=== PATIENT | male | born 1965 ===

== ENCOUNTER 2016-12-03 10:47 | Inpatient (IN) ==
[2016-12-03] MEDS ORDERED: NITROGLYCERIN 2% OINT 1 INCH/GM PACK TOP STA (11:13)
[2016-12-03] MEDS ORDERED: ONDANSETRON 4 MG/2 ML VIAL IV STA (11:13)
[2016-12-03] MEDS ORDERED: ASPIRIN 325 MG TABLET PO STA (11:13)
[2016-12-03] MEDS ORDERED: HEPARIN 5,000 UNIT/1 ML VIAL IV STA (11:18)
--- NOTE | 2016-12-03 11:20 | EKG Report ---
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
--- NOTE | 2016-12-03 11:25 | Emergency Department Note ---
Awilda Henry Hilary, am scribing for, and in the presence of, Frederic Vogel MD 11: 13. Lela Henry James D, MD, personally performed the services described in this documentation, ascribed by Tracy Kaiser in my presence, and it is both accurate and complete . Arrival - Arrival Chief Complaint: Chest Pain ED Nursing Triage Note: Brought in by EMS, transfer from [facility] ER for NSTEMI. C/o chest heaviness, but denies SOB. Also c/o lower back and left knee pain s/p fall earlier today, reports that he passed out while in the restroom r/t hypoglycemia. Mode of Arrival: Stretcher Limitations: No Limitations Source: Patient, RN Notes Reviewed - History of Present Illness HPI Narrative: Pt is a 51 y/o male brought to the ED via EMS as a transfer from [facility] ER for NSTEMI. Pt confirms chest heaviness, diaphoresis, ARORA and lower back pain with left knee pain s/p passing out from his hypoglycemia earlier today but denies SOB. He has a PMHx of CAD, HTN, CVA, Dyslipidemia, NIDDM and COPD. No other complaints or problems stated in the ED. Onset (ago): hour(s) Consistency: constant Severity: mild Severity scale (1-10): 1 Allergies/Adverse Reactions: Allergies Allergy/AdvReac Type Severity Reaction Status Date / Time No Known Allergies Allergy Verified 12/03/16 11:00 Home Medications: Home Medications Medication Instructions Recorded Confirmed Type Aspirin [Ecotrin] 81 mg PO DAILY 01/04/15 12/03/16 History Furosemide Tab [Lasix Tab] 40 mg PO TID 01/04/15 12/03/16 History hydrALAZINE TAB [Apresoline Tab] 50 mg PO TID 01/04/15 12/03/16 History Calcium (Carbonate) [Caltrate 600] 1,200 mg PO BID 12/03/16 12/03/16 History Gabapentin Cap/Tab [Neurontin 100 mg PO TID 12/03/16 12/03/16 History Cap/Tab] Ibuprofen Tab [Motrin Tab] 600 mg PO Q6H PRN 12/03/16 12/03/16 History Multivitamin (Centrum) [Centrum 1 tablet PO DAILY 09/07/17 09/07/17 History Tab] Saxagliptin HCl [Onglyza] 2.5 mg PO DAILY 12/03/16 12/03/16 History Simvastatin 10 mg PO DAILY 12/03/16 12/03/16 History amLODIPine [Norvasc] 5 mg PO DAILY 12/03/16 12/03/16 History glipiZIDE [Glipizide Xl] 10 mg PO DAILY 12/03/16 12/03/16 History Review of System - Review of System 12 point system: reviewed and no additional remarkable complaints except as stated - Review of System Constitutional: Present: diaphoresis. Absent: fever Respiratory: Absent: respiratory distress (SOB) Cardiovascular: Present: chest pain (Chest heaviness), syncope Musculoskeletal: Present: lower back pain Neurological: Present: headache Medical,Surgical,& Family Hx - Medical History Cardio: History of: CAD, Hypertension Neurology: History of: Cerebrovascular Accident Endocrine: History of: Diabetes Mellitus (NIDDM), Dyslipidemia Respiratory: History of: COPD - Surgical History Cardiac Surgeries: Sugical HX of: Cardiac Surgery Abdominal Surgeries: Surgical HX of: Abdominal Surgery (removal of foreign body at age 3) - Social History Smoking Status: Never smoker Frequency of Alcohol Use: None Type of Drug Use: None Exam Physical Examination: GENERAL: This is a well-nourished, well-developed male in no apparent distress. VITAL SIGNS: Temperature: 97.3 Pulse: 101 Respiratory: 16 Blood Pressure: 167/93 O2 Sat: 100 HEENT: Head is normocephalic and atraumatic. Pupils are equally round and reactive to light. Extraocular movement are intact. Oropharynx is benign with moist mucous membranes. NECK: Neck is soft and supple without tenderness. There are no masses. There is no lymphadenopathy. LUNGS: Lungs are clear to auscultation bilaterally. Chest rises symmetrically. There is no chest wall tenderness. CV: Heart is regular rate and rhythm without murmurs, rubs, or gallops. ABDOMEN: Abdomen is soft, non-tender to palpation. There are no abnormal masses palpated. There is no organomegaly. Bowel sounds are present and active. Back: Patient has minimal tenderness to palpation overlying the lumbar posterior spinous processes. SKIN: Skin is warm and dry. No rash. EXTREMITIES: There is some tenderness to palpation overlying the left patella. There is minimal reproducible pain with passive range of motion of the left knee. There is no pedal edema. NEUROLOGIC: Awake, alert, and oriented x4. Cranial nerves II through XII are grossly intact. There are no motorsensory deficits. PSYCHIATRIC: Normal affect. Normal mood. Vital Signs: Vital Signs Temperature 97.3 F L 12/03/16 10:54 Pulse Rate 101 H 12/03/16 10:54 Respiratory Rate 16 12/03/16 10:54 Blood Pressure 167/93 12/03/16 10:54 O2 Sat by Pulse Oximetry 100 12/03/16 10:54 Results - Labs Lab Results: I have reviewed the patients labs Labs: Lab performed at [facility] and reviewed by me: CBC: WBCs 8900, hemoglobin 9.1, hematocrit 28.7, platelet count 257,000 Urinalysis: Specific gravity 1.015, pH 5.0, nitrite negative, protein 2+ PTT 27.0 Urine drug screen negative INR 1.03 Chemistry: Sodium 142, potassium 4.2, chloride 105, CO2 18 Laboratory Tests 12/03/16 11:49 Troponin I 2.290 H .9, BUN 85, creatinine 6.5, troponin 2.9 Laboratory Tests 12/03/16 11:47 POC Glucose 61 L - EKG EKG results: interpreted by ERMD - Impressions EKG: Normal sinus rhythm with rate of 96, short OR interval, occasional PVCs, T- wave inversion inferiorly. - Diagnostic Findings Procedure: Chest x-ray: image reviewed by me (Old median sternotomy with no evidence of pleural effusions or infiltrates.), CT: image reviewed by me, report reviewed by me (CT head: No acute intracranial lesion or hemorrhage), X- ray: image reviewed by me (Lumbosacral spine x-ray: Multilevel DDD. left knee x- ray: No evidence of fracture.) Disposition Clinical Impression: Syncope, Coronary artery disease, Non-ST elevation [place] (NSTEMI), Diabetes mellitus, CKD (chronic kidney disease) Case discussed with: patient Disposition: Still a Patient
[2016-12-03] MEDS ORDERED: HEPARIN 5,000 UNIT/1 ML VIAL ONE (11:48)
[2016-12-03] MEDS ORDERED: NITROGLYCERIN 2% OINT 1 INCH/GM PACK TOP ONE (11:48)
[2016-12-03] MEDS ORDERED: ONDANSETRON 4 MG/2 ML VIAL ONE (11:48)
[2016-12-03] MEDS ORDERED: ASPIRIN 325 MG TABLET ONE (11:48)
[2016-12-03] MEDS ORDERED: DEXTROSE 50% 25 GM/50 ML SYRINGE IV ONE ×3 (11:50→15:12)
[2016-12-03] MEDS ORDERED: DEXTROSE 50% 25 GM/50 ML VIAL IV STA ×2 (12:02→13:31)
--- NOTE | 2016-12-03 12:13 | XRay Report ---
Exam: XR chest 2V Date: 12/03/2016 11:14 AM Indication: Chest pain Comparison: 01/04/2015 Technical: AP Findings: Sternotomy wires are present. Mild prominence the cortex silhouette. No obvious infiltrate or effusion. The bony structures are intact. The mediastinum reveals no acute findings with tiny nodes present. Impression: 1. Previous sternotomy 2. No acute cardiopulmonary pathology PROCEDURE INTERPRETED AT [facility] DEPARTMENT OF RADIOLOGY Final Report Signed by: Dr. Nolberto Crews
--- NOTE | 2016-12-03 12:14 | XRay Report ---
Exam: XR knee 2V LT Date: 12/03/2016 11:17 AM Indication: Pain secondary to fall Comparison: None Technical: AP lateral Findings: Minimal soft tissue swelling is present. The tibia fibula femur and patella are intact. Vascular calcification of the superficial femoral popliteal and tibial peroneal trunk arteries. Impression: 1. No fracture dislocation or significant arthritic changes 2. Mild soft tissue swelling 3. Extensive vascular calcification superficial femoral popliteal and tibial peroneal trunk vessels PROCEDURE INTERPRETED AT [facility] DEPARTMENT OF RADIOLOGY Final Report Signed by: Dr. Nolberto Crews
--- NOTE | 2016-12-03 12:16 | XRay Report ---
Exam: XR lumbar spine AP/LAT Date: 12/03/2016 11:17 AM Indication: Back pain secondary to fall Comparison: None Technical: AP lateral Findings: Examination reveals mild weightbearing deformity at T11 and T12. The lumbosacral spine is unremarkable. 5 lumbar vertebral segments are present. The pedicles and transverse processes are intact. The adjacent ribs of the lower thoracic spine area are intact the liver spleen and renal shadows are not well seen. Vascular calcifications are present. Impression: 1. Mild weightbearing deformity at T11 and T12 2. No obvious fractures lumbosacral spine 3. Vascular calcinosis PROCEDURE INTERPRETED AT [facility] DEPARTMENT OF RADIOLOGY Final Report Signed by: Dr. Nolberto Crews
--- NOTE | 2016-12-03 13:35 | Hospitalist History & Physical ---
Assessment and Plan - Time spent with patient Time spent with patient: Greater than 30 minutes (1) Non-ST elevation OR (NSTEMI) Status: Acute Assessment and plan: 12/03/16 Admit to Hospital Services Consult Cardiology (Patient of Dr Bender) Repeat troponin, serial repeat EKG repeat a.m. labs Echo Lipids A1c PRN pain management Sliding scale protocol for Glucose monitoring Discuss with Dr Oquendo for further recommendations with care. Current Visit: Yes (2) Syncope Status: Acute Current Visit: Yes (3) Chest pain Status: Acute Current Visit: No (4) CKD (chronic kidney disease) Status: Acute Assessment and plan: 12/03/16 Patient was scheduled to see Dr Galdamez today at [facility] for following up for Chronic renal insufficiency Patient is a patient of Dr Alexander Current Visit: Yes (5) Coronary artery disease Status: Acute Current Visit: Yes (6) Diabetes mellitus Status: Acute Current Visit: Yes History of Present Illness Chief complaint: chest pain and shortness of breath History of present illness: Mr. Vaz is a 51 year old [place] male w/PMHx CAD, CABG, Hypertension, CVA, DM , Dyslipidemia, COPD presented to the ED as transfer from [facility] ER for NSTEMI, chest heaviness and shortness of breath with exertion that started this a.m and went to [facility] ER for further evaluation. He reports being in the bathroom at [facility] when he passed out for a couple of seconds and fell to the floor related to hypoglycemia. He denies fever, chills, or cough. AT [facility] ER: LABS significant for Troponin 2.9, Creatinine 6.5 , BUN 85, GLUCOSE 28 Boris ED: CXR: nothing acute. Knee XR: no fracture dislocation, mild tissue swelling, extensive vascular calcification superficial femoral popliteal and tibial peroneal trunk vessels. Lumbar Spine XR: mild weight bearing deformity at T11 & T12, no fractures. Significant LABS: Glucose 61, Troponin 2.290. Hospital Services consulted for further evaluation and admission. He reports quitting smoking 2009, he denies alcohol intake, denies illicit drug use. PCP: Dr Bañuelos ([facility]) Renal: Dr Alexander and Dr Galdamez Barber Shop Operator: Dr Bender After discussion with Dr Vogel in ED and Dr Oquendo with Hospital Services, it was agreed to admit patient for further evaluation. Home medications to be reviewed and reconciliation to follow. Home Medications Medication Instructions Recorded Confirmed Type Aspirin [Ecotrin] 81 mg PO DAILY 01/04/15 12/03/16 History Furosemide Tab [Lasix Tab] 40 mg PO TID 01/04/15 12/03/16 History hydrALAZINE TAB [Apresoline Tab] 50 mg PO TID 01/04/15 12/03/16 History Calcium (Carbonate) [Caltrate 600] 1,200 mg PO BID 12/03/16 12/03/16 History Gabapentin Cap/Tab [Neurontin 100 mg PO TID 12/03/16 12/03/16 History Cap/Tab] Ibuprofen Tab [Motrin Tab] 600 mg PO Q6H PRN 12/03/16 12/03/16 History Multivitamin (Centrum) [Centrum 1 tablet PO DAILY 12/03/16 12/03/16 History Tab] Saxagliptin HCl [Onglyza] 2.5 mg PO DAILY 12/03/16 12/03/16 History Simvastatin 10 mg PO DAILY 12/03/16 12/03/16 History amLODIPine [Norvasc] 5 mg PO DAILY 12/03/16 12/03/16 History glipiZIDE [Glipizide Xl] 10 mg PO DAILY 12/03/16 12/03/16 History Allergies Allergy/AdvReac Type Severity Reaction Status Date / Time No Known Allergies Allergy Verified 12/03/16 11:00 Medical,Surgical,& Family Hx - Medical History Cardio: History of: CAD, Hypertension Neurology: History of: Cerebrovascular Accident Endocrine: History of: Diabetes Mellitus (NIDDM), Dyslipidemia Respiratory: History of: COPD - Surgical History Cardiac Surgeries: Sugical HX of: Cardiac Surgery (CABG 2009) Abdominal Surgeries: Surgical HX of: Abdominal Surgery (removal of foreign body at age 3) - Social History Smoking Status: Former smoker (quit 2009) Frequency of Alcohol Use: None Type of Drug Use: None Marital Status: Single Lives With:: Alone Functional capacity: uses cane/walker (cane) 12 point system: reviewed and no additional remarkable complaints except as stated - Constitutional Constitutional: Absent: anorexia, chills, fever(s), frequent falls - Cardiovascular Cardiovascular: Present: chest pain at rest, chest pain with activity, dyspnea on exertion, lightheadedness. 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 Absent: thyromegaly - Respiratory Respiratory exam: Present: clear to auscultation bilaterally. Absent: rhonchi, stridor, wheezes - Cardiovascular Cardiovascular exam: Present: regular rate and rhythm - GI/Abdominal GI/Abdominal exam: Present: normal bowel sounds, tenderness (generalized abdominal tenderness for a couple of days), soft - Extremities Exam Extremities exam: Present: full ROM. Absent: edema - Neurological Exam Neurological exam: Present: alert, oriented X3, CN II-XII intact - Psychiatric Psychiatric exam: Present: normal affect, normal mood. Absent: agitated, anxious - Skin Skin exam: Present: normal color, warm, dry Results - Labs Lab Results: I have reviewed the past 24 hour labs Labs: [facility]: LABS SIGNIFICANT: Troponin 2.290 and Glucose 61 [facility] sent records over and they are scanned into the system Significant LABS: Hypoglycemia, elevated troponin - Diagnostic Findings Procedure: Abdominal x-ray: other (LUMBAR SPINE XRAY: mild weight bearing deformity T11&T12, no fractures, vascular calcinosis), Chest x-ray: report reviewed by me (nothing acute), X-ray: report reviewed by me (knee: no fracture, mild soft tissue swelling)
[2016-12-03] MEDS ORDERED: MORPHINE 2 MG/1 ML SYRINGE IV PRN (13:36)
[2016-12-03] MEDS ORDERED: ACETAMINOPHEN 325 MG TABLET PO PRN (13:36)
[2016-12-03] MEDS ORDERED: SODIUM CHLORIDE 0.9% 1,000 ML IV SCH (14:00)
[2016-12-03] MEDS ORDERED: GLUCAGON 1 MG VIAL IM PRN (14:07)
[2016-12-03] MEDS ORDERED: DEXTROSE 50% 25 GM/50 ML VIAL IV PRN (14:07)
--- NOTE | 2016-12-03 14:53 | Nephrology Consult Note ---
History of Present Illness Chief complaint: Chronic kidney disease History of present illness: Mr. Vaz is a 51 year old male patient with history of chronic kidney disease due to hypertension diabetes is followed by me my chronic kidney disease clinic at [facility]. Patient was scheduled to see me today however presented to local emergency room with hypoglycemic episode and was found to have elevated troponin. Patient serum glucose was noted to be 28 serum creatinine has been 6.5. Home Medications Medication Instructions Recorded Confirmed Type Aspirin [Ecotrin] 81 mg PO DAILY 01/04/15 12/03/16 History Furosemide Tab [Lasix Tab] 40 mg PO TID 01/04/15 12/03/16 History hydrALAZINE TAB [Apresoline Tab] 50 mg PO TID 01/04/15 12/03/16 History Calcium (Carbonate) [Caltrate 600] 1,200 mg PO BID 12/03/16 12/03/16 History Gabapentin Cap/Tab [Neurontin 100 mg PO TID 12/03/16 12/03/16 History Cap/Tab] Ibuprofen Tab [Motrin Tab] 600 mg PO Q6H PRN 12/03/16 12/03/16 History Multivitamin (Centrum) [Centrum 1 tablet PO DAILY 12/03/16 12/03/16 History Tab] Saxagliptin HCl [Onglyza] 2.5 mg PO DAILY 12/03/16 12/03/16 History Simvastatin 10 mg PO DAILY 12/03/16 12/03/16 History amLODIPine [Norvasc] 5 mg PO DAILY 12/03/16 12/03/16 History glipiZIDE [Glipizide Xl] 10 mg PO DAILY 12/03/16 12/03/16 History Allergies Allergy/AdvReac Type Severity Reaction Status Date / Time No Known Allergies Allergy Verified 12/03/16 11:00 Medical,Surgical,& Family Hx - Medical History Cardio: History of: CAD, Hypertension, [place] Neurology: History of: Cerebrovascular Accident Endocrine: History of: Diabetes Mellitus (NIDDM), Dyslipidemia Respiratory: History of: COPD - Surgical History Cardiac Surgeries: Sugical HX of: Cardiac Surgery (CABG 2009) Abdominal Surgeries: Surgical HX of: Abdominal Surgery (removal of foreign body at age 3) - Social History Smoking Status: Former smoker Frequency of Alcohol Use: None Type of Drug Use: None Review of Systems Constitutional: fatigue, no fever(s) Cardiovascular: chest pain at rest Respiratory: dyspnea, no cough Gastrointestinal: no abdominal pain Genitourinary: no difficulty urinating Exam - Vital Signs Vital signs: Period Temp Pulse Resp BP Sys/Ford Pulse Ox Last 24 Hr 97.3 F-99.1 F 91-101 16-19 110-167/67-96 96-100 - General Appearance General appearance: well-developed, well-nourished EENT: ATNC Neck: supple Respiratory: clear Cardiology: regular rate, regular rhythm Gastrointestinal: normoactive bowel sounds, no tenderness Neurologic: alert and oriented x3, CN 3-12 intact Musculoskeletal: no clubbing Assessment and Plan (1) Hypoglycemia Status: Acute Current Visit: Yes (2) Renal insufficiency Status: Chronic Assessment and plan: BMP in a.m. Avoid nephrotoxic agents. Avoid NSAIDs. Will follow with you. Current Visit: No (3) Diabetes mellitus type 2, uncontrolled Status: Chronic Current Visit: No (4) Non-ST elevation [place] (NSTEMI) Status: Acute Assessment and plan: Elevated serum creatinine. Serial cardiac enzymes. Current Visit: Yes (5) CKD (chronic kidney disease) Status: Chronic Current Visit: Yes Qualifiers: Chronic kidney disease stage: stage 5, not on chronic dialysis Qualified Code(s): N18.5 - Chronic kidney disease, stage 5
--- NOTE | 2016-12-03 15:12 | EKG Report ---
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
[2016-12-03] MEDS: DEXTROSE 5% NACL 0.9% 1,000 ML IV SCH (15:31)
--- NOTE | 2016-12-03 16:21 | Cardiology Consult Note ---
<Meghann Lynn E - Last Filed: 12/03/16 16:16> Assessment and Plan - Time spent with patient Time spent with patient: Greater than 30 minutes (due to assessment, plan, and documentation) (1) Elevated troponin Status: Acute Assessment and plan: See plan of care listed below. Current Visit: Yes (2) Syncope Status: Acute Assessment and plan: See plan of care listed below. Current Visit: Yes (3) CKD (chronic kidney disease) Status: Chronic Assessment and plan: See plan of care listed below. Current Visit: Yes Qualifiers: Chronic kidney disease stage: stage 5, not on chronic dialysis Qualified Code(s): N18.5 - Chronic kidney disease, stage 5 (4) Coronary artery disease Status: Chronic Assessment and plan: See plan of care listed below. Current Visit: Yes (5) Hypertension Status: Chronic Assessment and plan: See plan of care listed below. Current Visit: No (6) Diabetes mellitus Status: Chronic Assessment and plan: See plan of care listed below. Current Visit: Yes Qualifiers: Diabetes mellitus type: type 2 (7) Tobacco abuse Status: Chronic Assessment and plan: See plan of care listed below. Current Visit: Yes (8) Hx of past noncompliance Status: Chronic Assessment and plan: See plan of care listed below. Current Visit: Yes History of Present Illness - Data of Consult Patient: new to practice (seen in remote past by Dr. Bender) Consult date: 12/03/16 Requesting Physician: Janett Kim - Consult Narrative Reason for consult: elevated troponin History of present illness: Polysomnograph Tech: Dr. Bender (last seen in 2013) PCP: Dr. Santana at [facility] Mr. Vaz is a 51 y/o NA male with a history of coronary artery disease, diabetes, hyperlipidemia, hypertension, chronic kidney disease, tobacco use. He underwent CABG involving two vessels on 11/08/[address] Milligan (DOWLING to LAD and SVG to right PDA). He returned in 2013 with chest pain and underwent nuclear stress testing which was consistent with an area of inferoapical scar without evidence of significant ischemia. EF 43% at that time. He also has a long history of noncompliance. Mr. Vaz was transferred to our facility from [facility] after experiencing a syncopal episode thought to be related to hypoglycemia. He was at [facility] for an appointment with Dr. Galdamez when he went to the bathroom and passed out for a few seconds. When he regained consciousness, he reports he had a midsternal chest heaviness, was diaphoretic, nauseated, and couldn't walk. He eventually made it to the door of the bathroom to call for help. His initial glucose level was 24. He tells me that he has hardly eaten anything since Wednesday because he does not have a job and couldn't afford it. He states he was too embarrassed to go to a friend's house to eat with them. He tells me that prior to today, he had been in his usual state of health. He denies recent exertional chest discomfort. When asked about dyspnea on exertion, he does admit to having some dyspnea on exertion over the past week but states he hadn't really thought about it until he was asked. Upon exam, he is having some mid back pain which he states is radiating around to his stomach. This is tender to palpation. Lumbar spine x-ray shows no obvious fractures in the lumbosacral spine. The x- ray revealed no fracture dislocation, mild tissue swelling. EKG shows sinus rhythm with inferior T-wave inversions. Troponin at [facility] 2.9 with CKMB 8.6 and CPK 605. His creatinine was 6.5 with GFR 10, sodium 142, potassium 4.2, chloride 105, CO2 18.9. H&H was 9.1 and 28.7. WBC 8.9, platelet count 257. Urine drug screen was negative. Blood pressure was 139/72 with heart rate 105. He was given 300 mg of Plavix p.o. and [address] head showed chronic age-related changes but no evidence of acute intracranial pathology. Will check lipid panel in AM. I have discussed Mr. Vaz with Dr. Tate and due to difficulty finding peripheral pulses and symptoms of claudication, we will obtain ABIs. Will await further recommendations from Dr. Tate. ASSESSMENT/PLAN: 1. ELEVATED TROPONIN: 2.9 at [facility] with elevated CK-MB in the setting of hypoglycemia, syncope, and chronic kidney disease. 2.34 at our facility. Echocardiogram has been ordered. We will continue to cycle cardiac biomarkers and EKGs and follow trend. 2. SYNCOPE: Thought to be due to hypoglycemia. Blood glucose level 24 upon initial check by [facility]. He has been given IV D50 and snacks with peanut butter and crackers. 3. CHRONIC KIDNEY DISEASE, STAGE V: Followed routinely by nephrology, Dr. Galdamez and Dr. Alexander. Not currently on dialysis. Will avoid nephrotoxic agents and monitor BMP. If possible, he may be best treated medically instead of pursuing LHC with IV dye to avoid worsening renal function. Certainly, if he has recurrent anginal symptoms, he may require further cardiac evaluation. 4. CORONARY ARTERY DISEASE: He underwent CABG involving two vessels on 11/08/[address] Milligan (DOWLING to LAD and SVG to right PDA). He returned in 2013 with chest pain and underwent nuclear stress testing which was consistent with an area of inferoapical scar without evidence of significant ischemia. EF 43% at that time. Continue aspirin 81mg po daily. Will start low dose beta zenon. Will avoid BRITTANI/ARB due to impaired kidney function. 5. HYPERTENSION: Fairly well controlled with occasional elevated readings since admission. Will continue home medications, monitor, and adjust accordingly. 6. DIABETES MELLITUS: Uncontrolled. He has been started on accuchecks. 7. TOBACCO ABUSE: Chronic. Greater than 5 minutes was spent discussing the benefits of tobacco cessation. 8. HISTORY OF NONCOMPLIANCE: Chronic. He has taken himself off of medications on numerous occasions. CC: Clark Oquendo MD - Home Medications and Allergies Home Medications: Home Medications Medication Instructions Recorded Confirmed Type Aspirin [Ecotrin] 81 mg PO DAILY 01/04/15 12/03/16 History Furosemide Tab [Lasix Tab] 40 mg PO TID 01/04/15 12/03/16 History hydrALAZINE TAB [Apresoline Tab] 50 mg PO TID 01/04/15 12/03/16 History Calcium (Carbonate) [Caltrate 600] 1,200 mg PO BID 12/03/16 12/03/16 History Gabapentin Cap/Tab [Neurontin 100 mg PO TID 12/03/16 12/03/16 History Cap/Tab] Ibuprofen Tab [Motrin Tab] 600 mg PO Q6H PRN 12/03/16 12/03/16 History Multivitamin (Centrum) [Centrum 1 tablet PO DAILY 12/03/16 12/03/16 History Tab] Saxagliptin HCl [Onglyza] 2.5 mg PO DAILY 12/03/16 12/03/16 History Simvastatin 10 mg PO DAILY 12/03/16 12/03/16 History amLODIPine [Norvasc] 5 mg PO DAILY 12/03/16 12/03/16 History glipiZIDE [Glipizide Xl] 10 mg PO DAILY 12/03/16 12/03/16 History Allergies/Adverse Reactions: Allergies Allergy/AdvReac Type Severity Reaction Status Date / Time No Known Allergies Allergy Verified 12/03/16 11:00 Review of systems: - Constitutional: Present: As per HPI. Absent: anorexia, chills, daytime sleepiness, excessive sweating, fever(s), frequent falls, headache(s), increased appetite, lethargy, malaise, night sweats, stops breathing during sleep, weakness, weight gain, weight loss, fatigue. - EENT Eyes: Present: As per HPI. Absent: blurry vision, diplopia, loss of vision Ears: Present: As per HPI. Absent: decreased hearing, ear discharge, ear pain Nose, mouth and throat: Present: As per HPI. Absent: dysphagia, epistaxis, headache(s), hoarseness, lip swelling, nasal congestion, neck mass, neck pain, sinus pressure, sore throat, throat swelling, tongue swelling, vertigo - Cardiovascular: Present: chest pain at rest, dyspnea on exertion, diaphoresis , claudication, as per HPI. Absent: chest pain with activity, dyspnea, edema, radiating jaw, neck or arm pain, lightheadedness, orthopnea, palpitations, PND - Respiratory: Present: dyspnea on exertion, as per HPI. Absent: dyspnea, cough , hemoptysis, wheezing, snoring, pain on inspiration - Gastrointestinal: Present: nausea, As per HPI. Absent: abdominal pain, bloating, change in bowel habits, constipation, diarrhea, heartburn, hematemesis , hematochezia, loose stools, melena, vomiting - Genitourinary: Present: As per HPI. Absent: difficulty urinating, dysuria, flank pain, hematuria, nocturia, urinary frequency, urinary incontinence - Musculoskeletal: Present: back pain, As per HPI. Absent: arthralgias, joint swelling, limited range of motion, muscle cramps, muscle weakness, myalgias - Neurological: Present: syncope, As per HPI. Absent: abnormal gait, abnormal speech, behavioral changes, confusion, convulsions, disequilibrium, dizziness, focal weakness, frequent falls, headache(s), memory loss, numbness, paresthesias , radicular pain, tremor(s) - Psychiatric: Present: As per HPI. Absent: anxiety, confusion, depression, panic attacks - Endocrine: Present: As per HPI. Absent: cold intolerance, fatigue, heat intolerance, polydipsia, polyphagia - Hematologic/Lymphatic: Present: As per HPI. Absent: easy bleeding, easy bruising, lymphadenopathy Medical,Surgical,& Family Hx - Medical History Cardio: History of: CAD, Hypertension, [place] Neurology: History of: Cerebrovascular Accident Endocrine: History of: Diabetes Mellitus (NIDDM), Dyslipidemia Respiratory: History of: COPD - Surgical History Cardiac Surgeries: Sugical HX of: Cardiac Surgery (CABG 2009) Abdominal Surgeries: Surgical HX of: Abdominal Surgery (removal of foreign body at age 3) - Social History Smoking Status: Former smoker Frequency of Alcohol Use: None Type of Drug Use: None Physical Examination Vital Signs Temp Pulse Resp BP Pulse Ox 97.3 F L 101 H 16 167/93 100 12/03/16 10:54 12/03/16 10:54 12/03/16 10:54 12/03/16 10:54 12/03/16 10:54 Exam: General appearance: Pleasant and cooperative. no acute distress. Head exam: Present: normal inspection, normocephalic, atraumatic. Absent: hematoma, laceration Eye exam: Present: EOMI. Absent: conjunctival injection, nystagmus, periorbital swelling, scleral icterus, laceration to eyelids, jaundice Pupils: Present: PERRL. Absent: constricted, dilated, fixed, irregular, unequal ENT exam: Present: normal exam, normal external ear exam, mucous membranes moist. Neck exam: Present: normal inspection, midline trachea. Absent: masses, lymphadenopathy, tenderness, thyromegaly, carotid bruit Respiratory exam: Present: clear to auscultation bilaterally. Absent: accessory muscle use, chest wall tenderness, rales, rhonchi, wheezing. Cardiovascular exam: Present: regular rate and rhythm. Absent: gallop, JVD, rubs, murmur GI/Abdominal exam: Present: normal bowel sounds, soft. Absent: distended, firm , hernia, mass, tenderness. Extremities exam: Present: Normal Gait, No Clubbing, No Cyanosis, Upper Extr. Pulses 2+, unable to palpate lower extremity pulses, Trace BLE edema. Capillary refill less than 3 seconds. Musculoskeletal: Present: No Fluid Collection, No Pain, Normal Range of Motion Back exam: Present: normal inspection. Absent: muscle spasm, vertebral tenderness Neurological exam: Present: awake, alert, oriented X3, Moves all extremities well without hemiparesis or paralysis. Grossly intact without resting or essential tremor Psychiatric exam: Present: quiet, somewhat of a flat affect Skin exam: Present: normal color, warm, dry, intact. Absent: cyanosis, diaphoretic, rash, urticaria Result/EKG - Labs Lab Results: I have reviewed the past 24 hour labs Labs: Laboratory Results - last 24 hr 12/03/16 12/03/16 12/03/16 11:47 11:49 13:25 POC Glucose 61 L 28 L* Troponin I 2.290 H 12/03/16 12/03/16 12/03/16 13:35 14:33 15:07 POC Glucose 218 H 40 L* Troponin I 2.340 H 12/03/16 16:13 POC Glucose 134 H Troponin I - EKG EKG results: interpreted by me, sinus rhythm (with inferior T-wave inversions) <Alvina Tate - Last Filed: 12/03/16 18:44> History of Present Illness - Consult Narrative History of present illness: I have personally interviewed and evaluated the patient, reviewed the chart and discussed medical decision-making with practitioner Shane. I have read this note and agree with her documentation here in. The care of this patient will be confounded by his history of noncompliance. He does tell me he has been recently compliant with his medications. We will continue to follow with you. His profound renal insufficiency also complicates the possibility of proceeding with cardiac catheterization. It is possible that his non-STEMI is secondary to the stress of his profound hypoglycemia which also included cerebral effects. Depending on how he evolves we may need to consider noninvasive testing as a first option. CC: Clark Oquendo MD Physical Examination Vital Signs Temp Pulse Resp BP Pulse Ox 97.3 F L 101 H 16 167/93 100 12/03/16 10:54 12/03/16 10:54 12/03/16 10:54 12/03/16 10:54 12/03/16 10:54 Result/EKG - Labs Labs: Laboratory Results - last 24 hr 12/03/16 12/03/16 12/03/16 11:47 11:49 13:25 POC Glucose 61 L 28 L* Total Creatine Kinase CK-MB (CK-2) CK and CKMB Interp Troponin I 2.290 H 12/03/16 12/03/16 12/03/16 13:35 14:33 15:07 POC Glucose 218 H 40 L* Total Creatine Kinase CK-MB (CK-2) CK and CKMB Interp Troponin I 2.340 H 12/03/16 12/03/16 16:13 17:31 POC Glucose 134 H Total Creatine Kinase 701 H CK-MB (CK-2) 8.8 H CK and CKMB Interp 1.3 Troponin I 2.600 H
[2016-12-03 18:16] LABS: CKMB % 1.3 %
[2016-12-03 18:18] LABS: Troponin I Only 2.6 NG/ML (0.00-0.045)
[2016-12-03] MEDS: CARVEDILOL 3.125 MG TABLET PO SCH (20:55)
[2016-12-03] MEDS: GABAPENTIN 100 MG CAPSULE PO SCH (20:55)
[2016-12-03] MEDS: CALCIUM (CARBONATE) 600 MG TABLET PO SCH (20:55)
[2016-12-04 00:30] LABS: CKMB % 1.1 %
[2016-12-04] MEDS: DEXTROSE 50% 25 GM/50 ML SYRINGE IV PRN ×4 (00:31→11:30)
[2016-12-04 00:47] LABS: Troponin I Only 2.97 NG/ML (0.00-0.045)
[2016-12-04] MEDS: DEXTROSE 5% NACL 0.9% 1,000 ML IV SCH (04:52)
[2016-12-04 05:52] LABS: Basophils % 0.6 % (0.0-0.8); Eosinophils # 0.1 10*3/uL (0.0-0.87); Eosinophils % 1.6 % (0.00-10.9); Hematocrit 21.8 VOL% (42.0-52.0); Immature Granulocytes % 0.7 %; Immature Granulocytes Absolute 0.05 #; Lymphocytes % 15.6 % (21.2-54.2); Mean Corpuscular HGB Conc 33.5 GM/DL (32-36); Mean Corpuscular Hemoglobin 30 PG (27-34); Mean Corpuscular Volume 89.3 FL (87-102); Mean Platelet Volume 10.1 FL (9.6-12.0); Monocytes # 0.7 10*3/uL (0.11-0.8); Monocytes % 9.7 % (1.7-12.7); Neutrophils # 4.8 10*3/uL (1.4-7.4); Neutrophils % 71.8 % (38.7-73.9); Platelet Count 204 T/CUMM (130-400); Red Blood Count 2.44 MC/CUMM (3.8-5.5); Red Cell Distribution Width 13.5 % (9.3-17.3); White Blood Count 6.7 T/CUMM (4-12)
[2016-12-04 05:54] LABS: Hemoglobin 7.3 GM/DL (14.0-18.0)
[2016-12-04 06:16] LABS: Albumin 2.6 G/DL (3.4-5.0); Bilirubin,Total 0.7 MG/DL (0.2-1.0); Magnesium 1.8 MG/DL (1.8-2.4); Osmolality,Calculated 312.7 MOS/KG (273-304); Potassium 4.3 MMOL/L (3.5-5.1); Risk Ratio 1.98; Total Protein 5.3 G/DL (6.4-8.3); VLDL CHOLESTEROL 12.2 MG/DL
[2016-12-04 06:19] LABS: Calcium 5.7 MG/DL (8.5-10.1)
[2016-12-04 08:59] LABS: Hepatitis A Ab IgM Quant 0.04 Index; Hepatitis A Ab IgM Result Negative (Negative); Hepatitis B Core IgM Quant 0.11 Index; Hepatitis B Core IgM Result Negative (Negative); Hepatitis B Surface Ag Quant 0.19 Index; Hepatitis B Surface Ag Result Negative (Negative); Hepatitis C Virus Ab Quant 0.03 Index; Hepatitis C Virus Ab Result Negative (Negative)
--- NOTE | 2016-12-04 09:19 | EKG Report ---
Stationary ECG Study [facility] Test Date: 12/03/2016 5:42:15 PM Pat Name: ARLINE SALCEDO Department: Room: 264 Gender: M [employer]: : [id number] Requested by: Clark Oquendo Order Number: [id number] Reading MD: MICA VALDIVIA Intervals [place] Rate: 91 P: 49 MN: 143 QRS: -8 QRSD: 93 T: 81 QT: 383 QTc: 432 Interpretive Statements SINUS RHYTHM POSSIBLE LEFT ATRIAL ENLARGEMENT Electronically Signed On 12-04-16 10:18:58 CDT by MICA VALDIVIA [email or web address]
--- NOTE | 2016-12-04 09:31 | ECHO Report ---
Miguelangel Vaz Exam Date: 12/03/2016 15:32 Referring Physician: Technologist: Zaira Linn RDCS Age: 51 Ht (in): 66 Wt (lb): 164 Gender: M Exam Location: [facility] Echo Indications: Chest pain, unspecified, Shortness of breath, Non-ST elevation (NSTEMI) myocardial infarction, Syncope and collapse, CAD with previous CABG, COPD, Essential (primary) hypertension BP: 148 / 94 HR: 97 Rhythm: Sinus Technical Quality: Fair IMPRESSIONS Moderate reduced LV systolic function with ejection fraction estimated at 40-45%. Moderate left atrial enlargement. Mild right atrial enlargement. Mild mitral, pulmonic, aortic and tricuspid regurgitation. Pulmonary hypertension with pulmonary artery pressure estimated at 60 mmHg. MEASUREMENTS (Male / Female) Normal Values 2D ECHO LV Diastolic Diameter PLAX 5.3 cm 4.2 - 5.9 / 3.9 - 5.3 cm LV Systolic Diameter PLAX 4.6 cm LV Fractional Shortening PLAX 13.4 % IVS Diastolic Thickness 1.1 cm 0.6 - 1.0 / 0.6 - 0.9 cm LVPW Diastolic Thickness 1.1 cm 0.6 - 1.0 / 0.6 - 0.9 cm RV Internal Dim ED PLAX 2.8 cm Aortic Root Diameter 3.5 cm LA Systolic Diameter LX 5.2 cm 3.0 - 4.0 / 2.7 - 3.8 cm DOPPLER TR Peak Velocity 354.0 cm/s TR Peak Gradient 50.1 mmHg FINDINGS Left Ventricle Normal left ventricular cavity size. Mild left ventricular hypertrophy. Left ventricular ejection fraction is estimated at 45 %. Right Ventricle Mildly increased right ventricular size. Right Atrium The right atrium is mildly enlarged. Left Atrium The left atrium is mildly enlarged. Mitral Valve Morphologically normal mitral valve. Trace mitral valve regurgitation. Aortic Valve Trileaflet aortic valve. Trace to mild aortic valve regurgitation. . Tricuspid Valve Morphologically normal tricuspid valve. Mild tricuspid valve regurgitation. Tricuspid regurgitation velocities suggest a PAP of 60 mmHg. Pulmonic Valve Morphologically normal pulmonic valve. Trace pulmonary valve regurgitation. Pericardium Normal pericardium without effusion. Aorta Normal ascending aorta dimension. Alvina Tate MD (Electronically Signed) Final Date: 04 December 2016 09:30
--- NOTE | 2016-12-04 09:47 | Cardiology Progress Note ---
<Meghann Lynn E - Last Filed: 12/04/16 10:44> Assessment and Plan - Time spent with patient Time spent with patient: Less than 30 minutes (1) Non-ST elevation OR (NSTEMI) Status: Acute Assessment and plan: See plan of care listed below. Current Visit: Yes (2) Elevated troponin Status: Acute Assessment and plan: See plan of care listed below. Current Visit: Yes (3) Syncope Status: Acute Assessment and plan: See plan of care listed below. Current Visit: Yes (4) CKD (chronic kidney disease) Status: Chronic Assessment and plan: See plan of care listed below. Current Visit: Yes Qualifiers: Chronic kidney disease stage: stage 5, not on chronic dialysis Qualified Code(s): N18.5 - Chronic kidney disease, stage 5 (5) Coronary artery disease Status: Chronic Assessment and plan: See plan of care listed below. Current Visit: Yes (6) Hypertension Status: Chronic Assessment and plan: See plan of care listed below. Current Visit: No (7) Diabetes mellitus Status: Chronic Assessment and plan: See plan of care listed below. Current Visit: Yes Qualifiers: Diabetes mellitus type: type 2 (8) Tobacco abuse Status: Chronic Assessment and plan: See plan of care listed below. Current Visit: Yes (9) Hx of past noncompliance Status: Chronic Assessment and plan: See plan of care listed below. 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 Santana at [facility] SUMMARY: Mr. Vaz is a 51 y/o NA male who was transferred to our facility from [facility] after experiencing a syncopal episode thought to be related to hypoglycemia. When he regained consciousness, he had chest pain and was taken to the ER. Troponin at [facility] 2.9 with CKMB 8.6 and CPK 605. Initial glucose level was 24. EKG showed sinus rhythm with inferior T-wave inversions. 2016: Mr. Vaz seen on the telemetry unit this morning. There has been little change in his status overnight. His troponin continues to rise but he has had no further chest discomfort or significant dyspnea. His blood glucose level did drop during the night and he required more IV dextrose. He continues to complain of pain in his bilateral lower extremities and does have some mild pitting edema. He is for ABIs this morning. I am unable to palpate DP pulses but he does have some faint PT pulses bilaterally, intermittent. H&H is 7.3 and 21.8. He has had no obvious signs of blood loss. We will repeat his H&H to make sure this is accurate as this is a fairly significant drop since yesterday. I have conferred care with Janett Kim NP this morning. Dr. Tate to follow with further plan and addendum. IMPRESSION/PLAN: 1. NSTEMI: His profound renal insufficiency complicates the possibility of proceeding with cardiac catheterization. It is possible that his non-STEMI is secondary to the stress of his profound hypoglycemia which also included cerebral effects. Depending on how he evolves we may need to consider noninvasive testing as a first option. 2. ELEVATED TROPONIN: 3.41 this morning with CK-MB 6.9 and CPK 663. 3. SYNCOPE: Thought to be due to hypoglycemia. Blood glucose level 24 upon initial check by [facility]. BG dropped to 22 during the night. He is now on IVF with dextrose. 4. CHRONIC KIDNEY DISEASE, STAGE V: Followed routinely by nephrology, Dr. Galdamez and Dr. Alexander. Not currently on dialysis. Will avoid nephrotoxic agents and monitor BMP. If possible, he may be best treated medically instead of pursuing LHC with IV dye to avoid worsening renal function. Certainly, if he has recurrent anginal symptoms, he may require further cardiac evaluation. 5. CORONARY ARTERY DISEASE: He underwent CABG involving two vessels on 11/08/[address] Milligan (DOWLING to LAD and SVG to right PDA). He returned in 2013 with chest pain and underwent nuclear stress testing which was consistent with an area of inferoapical scar without evidence of significant ischemia. EF 43% at that time. Continue aspirin 81mg po daily. Will start low dose beta zenon. Will avoid BRITTANI/ARB due to impaired kidney function. 6. HYPERTENSION: Fairly well controlled with occasional elevated readings since admission. Will continue home medications, monitor, and adjust accordingly. 7. DIABETES MELLITUS: Uncontrolled. He has been started on accuchecks. 8. TOBACCO ABUSE: Chronic. Greater than 5 minutes was spent discussing the benefits of tobacco cessation. 9. HISTORY OF NONCOMPLIANCE: Chronic. He has taken himself off of medications on numerous occasions but reports he has been recently compliant with medical therapy. 10. ELEVATED ALP: Hepatitis panel negative. Will defer to hospital medicine for further evaluation. 11. HYPOCALCEMIA: Calcium level 5.7 this morning. He is on calcium carbonate 1200mg po BID. 12. ANEMIA: H&H abnormal at [facility] but has dropped significantly overnight. We will recheck to ensure this is accurate. Exam (Progress Note) - Constitutional Vitals: Period Temp Pulse Resp BP Sys/Ford Pulse Ox Last 24 Hr 97.3 F-99.1 F 88-101 16-19 110-167/65-96 93-100 Exam: General appearance: Pleasant and cooperative. no acute distress. Head exam: Present: normal inspection, normocephalic, atraumatic. Absent: hematoma, laceration Eye exam: Present: EOMI. Absent: conjunctival injection, nystagmus, periorbital swelling, scleral icterus, laceration to eyelids, jaundice Pupils: Present: PERRL. Absent: constricted, dilated, fixed, irregular, unequal ENT exam: Present: normal exam, normal external ear exam, mucous membranes moist. Neck exam: Present: normal inspection, midline trachea. Absent: masses, lymphadenopathy, tenderness, thyromegaly, carotid bruit Respiratory exam: Present: clear to auscultation bilaterally. Absent: accessory muscle use, chest wall tenderness, rales, rhonchi, wheezing. Cardiovascular exam: Present: regular rate and rhythm. Absent: gallop, JVD, rubs, murmur GI/Abdominal exam: Present: normal bowel sounds, soft. Absent: distended, firm , hernia, mass, tenderness. Extremities exam: Present: Normal Gait, No Clubbing, No Cyanosis, Upper Extr. Pulses 2+, Faint PT pulses palpable bilaterally, 1+ BLE edema. Capillary refill less than 3 seconds. Musculoskeletal: Present: No Fluid Collection, No Pain, Normal Range of Motion Back exam: Present: normal inspection. Absent: muscle spasm, vertebral tenderness Neurological exam: Present: awake, alert, oriented X3, Moves all extremities well without hemiparesis or paralysis. Grossly intact without resting or essential tremor Psychiatric exam: Present: quiet, somewhat of a flat affect Skin exam: Present: normal color, warm, dry, intact. Absent: cyanosis, diaphoretic, rash, urticaria Result/EKG - Labs CBC & BMP: 12/04/16 03:46 12/04/16 03:46 Lab Results: I have reviewed the past 24 hour labs Labs: Laboratory Results - last 24 hr 12/03/16 12/03/16 12/03/16 11:47 11:49 13:25 WBC RBC Hgb Hct MCV MCH MCHC RDW Plt Count MPV Neut % (Auto) Lymph % (Auto) [place] % (Auto) Eos % (Auto) Baso % (Auto) Neut # (Auto) Lymph # (Auto) [place] # (Auto) Eos # (Auto) Baso # (Auto) Immature Gran % Nucleated RBC % Immature Gran # Nucleated RBCs # Immature Plt Fraction Sodium Potassium Chloride Carbon Dioxide Anion Gap BUN Creatinine GFR Calculation BUN/Creatinine Ratio Glucose POC Glucose 61 L 28 L* Hemoglobin A1c Calculated Osmolality Calcium Magnesium Total Bilirubin AST ALT Alkaline Phosphatase Total Creatine Kinase CK-MB (CK-2) CK and CKMB Interp Troponin I 2.290 H B-Natriuretic Peptide Total Protein Albumin Globulin Albumin/Globulin Ratio Triglycerides Cholesterol LDL Cholesterol VLDL Cholesterol HDL Cholesterol Heart Disease Risk Ratio Hepatitis A IgM Ab Hep Bs Antigen Hep B Core IgM Ab Hepatitis C Antibody 12/03/16 12/03/16 12/03/16 13:35 14:33 15:07 WBC RBC Hgb Hct MCV MCH MCHC RDW Plt Count MPV Neut % (Auto) Lymph % (Auto) [place] % (Auto) Eos % (Auto) Baso % (Auto) Neut # (Auto) Lymph # (Auto) [place] # (Auto) Eos # (Auto) Baso # (Auto) Immature Gran % Nucleated RBC % Immature Gran # Nucleated RBCs # Immature Plt Fraction Sodium Potassium Chloride Carbon Dioxide Anion Gap BUN Creatinine GFR Calculation BUN/Creatinine Ratio Glucose POC Glucose 218 H 40 L* Hemoglobin A1c Calculated Osmolality Calcium Magnesium Total Bilirubin AST ALT Alkaline Phosphatase Total Creatine Kinase CK-MB (CK-2) CK and CKMB Interp Troponin I 2.340 H B-Natriuretic Peptide Total Protein Albumin Globulin Albumin/Globulin Ratio Triglycerides Cholesterol LDL Cholesterol VLDL Cholesterol HDL Cholesterol Heart Disease Risk Ratio Hepatitis A IgM Ab Hep Bs Antigen Hep B Core IgM Ab Hepatitis C Antibody 12/03/16 12/03/16 12/03/16 16:13 17:31 19:09 WBC RBC Hgb Hct MCV MCH MCHC RDW Plt Count MPV Neut % (Auto) Lymph % (Auto) [place] % (Auto) Eos % (Auto) Baso % (Auto) Neut # (Auto) Lymph # (Auto) [place] # (Auto) Eos # (Auto) Baso # (Auto) Immature Gran % Nucleated RBC % Immature Gran # Nucleated RBCs # Immature Plt Fraction Sodium Potassium Chloride Carbon Dioxide Anion Gap BUN Creatinine GFR Calculation BUN/Creatinine Ratio Glucose POC Glucose 134 H 61 L Hemoglobin A1c Calculated Osmolality Calcium Magnesium Total Bilirubin AST ALT Alkaline Phosphatase Total Creatine Kinase 701 H CK-MB (CK-2) 8.8 H CK and CKMB Interp 1.3 Troponin I 2.600 H B-Natriuretic Peptide Total Protein Albumin Globulin Albumin/Globulin Ratio Triglycerides Cholesterol LDL Cholesterol VLDL Cholesterol HDL Cholesterol Heart Disease Risk Ratio Hepatitis A IgM Ab Hep Bs Antigen Hep B Core IgM Ab Hepatitis C Antibody 12/03/16 12/04/16 12/04/16 23:53 00:19 01:03 WBC RBC Hgb Hct MCV MCH MCHC RDW Plt Count MPV Neut % (Auto) Lymph % (Auto) [place] % (Auto) Eos % (Auto) Baso % (Auto) Neut # (Auto) Lymph # (Auto) [place] # (Auto) Eos # (Auto) Baso # (Auto) Immature Gran % Nucleated RBC % Immature Gran # Nucleated RBCs # Immature Plt Fraction Sodium Potassium Chloride Carbon Dioxide Anion Gap BUN Creatinine GFR Calculation BUN/Creatinine Ratio Glucose POC Glucose 38 L* 102 Hemoglobin A1c Calculated Osmolality Calcium Magnesium Total Bilirubin AST ALT Alkaline Phosphatase Total Creatine Kinase 609 H CK-MB (CK-2) 6.5 H CK and CKMB Interp 1.1 Troponin I 2.970 H B-Natriuretic Peptide Total Protein Albumin Globulin Albumin/Globulin Ratio Triglycerides Cholesterol LDL Cholesterol VLDL Cholesterol HDL Cholesterol Heart Disease Risk Ratio Hepatitis A IgM Ab Hep Bs Antigen Hep B Core IgM Ab Hepatitis C Antibody 12/04/16 12/04/16 12/04/16 03:46 03:46 03:46 WBC 6.7 RBC 2.44 L Hgb 7.3 L Hct 21.8 L MCV 89.3 MCH 30 MCHC 33.5 RDW 13.5 Plt Count 204 MPV 10.1 Neut % (Auto) 71.8 Lymph % (Auto) 15.6 L [place] % (Auto) 9.7 Eos % (Auto) 1.6 Baso % (Auto) 0.6 Neut # (Auto) 4.8 Lymph # (Auto) 1.0 L [place] # (Auto) 0.7 Eos # (Auto) 0.1 Baso # (Auto) 0.0 Immature Gran % 0.7 Nucleated RBC % 0.0 Immature Gran # 0.05 Nucleated RBCs # 0.00 Immature Plt Fraction 0.0 Sodium 145 Potassium 4.3 Chloride 113 H Carbon Dioxide 21 Anion Gap 15.3 H BUN 93 H Creatinine 6.10 H GFR Calculation 10 BUN/Creatinine Ratio 15.00 Glucose 22 L* POC Glucose Hemoglobin A1c Calculated Osmolality 312.7 H Calcium 5.7 L* Magnesium 1.8 Total Bilirubin 0.70 AST 23 ALT 18 Alkaline Phosphatase 130 H Total Creatine Kinase CK-MB (CK-2) CK and CKMB Interp Troponin I B-Natriuretic Peptide 651 H Total Protein 5.3 L Albumin 2.6 L Globulin 2.7 Albumin/Globulin Ratio 0.9 L Triglycerides 61 Cholesterol 85 LDL Cholesterol 37.0 VLDL Cholesterol 12.2 HDL Cholesterol 43 Heart Disease Risk Ratio 1.98 Hepatitis A IgM Ab Hep Bs Antigen Hep B Core IgM Ab Hepatitis C Antibody 12/04/16 12/04/16 12/04/16 03:46 03:46 03:48 WBC RBC Hgb Hct MCV MCH MCHC RDW Plt Count MPV Neut % (Auto) Lymph % (Auto) [place] % (Auto) Eos % (Auto) Baso % (Auto) Neut # (Auto) Lymph # (Auto) [place] # (Auto) Eos # (Auto) Baso # (Auto) Immature Gran % Nucleated RBC % Immature Gran # Nucleated RBCs # Immature Plt Fraction Sodium Potassium Chloride Carbon Dioxide Anion Gap BUN Creatinine GFR Calculation BUN/Creatinine Ratio Glucose POC Glucose 22 L* Hemoglobin A1c 5.6 Calculated Osmolality Calcium Magnesium Total Bilirubin AST ALT Alkaline Phosphatase Total Creatine Kinase CK-MB (CK-2) CK and CKMB Interp Troponin I B-Natriuretic Peptide Total Protein Albumin Globulin Albumin/Globulin Ratio Triglycerides Cholesterol LDL Cholesterol VLDL Cholesterol HDL Cholesterol Heart Disease Risk Ratio Hepatitis A IgM Ab Negative Hep Bs Antigen Negative Hep B Core IgM Ab Negative Hepatitis C Antibody Negative 12/04/16 12/04/16 12/04/16 04:50 07:51 08:23 WBC RBC Hgb Hct MCV MCH MCHC RDW Plt Count MPV Neut % (Auto) Lymph % (Auto) [place] % (Auto) Eos % (Auto) Baso % (Auto) Neut # (Auto) Lymph # (Auto) [place] # (Auto) Eos # (Auto) Baso # (Auto) Immature Gran % Nucleated RBC % Immature Gran # Nucleated RBCs # Immature Plt Fraction Sodium Potassium Chloride Carbon Dioxide Anion Gap BUN Creatinine GFR Calculation BUN/Creatinine Ratio Glucose POC Glucose 86 54 L 125 H Hemoglobin A1c Calculated Osmolality Calcium Magnesium Total Bilirubin AST ALT Alkaline Phosphatase Total Creatine Kinase CK-MB (CK-2) CK and CKMB Interp Troponin I B-Natriuretic Peptide Total Protein Albumin Globulin Albumin/Globulin Ratio Triglycerides Cholesterol LDL Cholesterol VLDL Cholesterol HDL Cholesterol Heart Disease Risk Ratio Hepatitis A IgM Ab Hep Bs Antigen Hep B Core IgM Ab Hepatitis C Antibody - EKG EKG results: interpreted by me, sinus rhythm Specialty Discharge - Follow Up or Referrals <Alvina Tate - Last Filed: 12/04/16 17:00> Cardiology - PN: Subj Interval history: I have personally interviewed and evaluated the patient, reviewed the chart and discussed medical decision-making with practitioner Shane. I have read this note and agree with her documentation here in With the following exceptions and clarifications: Troponins are flat, persistent. Some of this could be correlated with his extreme hypoglycemia. He continues to have severe renal insufficiency, anemia. At some point he will need further cardiac workup, stress testing versus heart catheterization depending whether or not he begins dialysis. We will need to manage his blood sugars and delineate his anemia prior to cardiac workup Exam (Progress Note) - Constitutional Vitals: Period Temp Pulse Resp BP Sys/Ford Pulse Ox Last 24 Hr 97.4 F-99.3 F 87-95 16-20 142-163/65-104 93-99 Result/EKG - Labs CBC & BMP: 12/04/16 10:55 12/04/16 03:46 Labs: Laboratory Results - last 24 hr 12/03/16 12/03/16 12/03/16 17:31 19:09 23:53 WBC RBC Hgb Hct MCV MCH MCHC RDW Plt Count MPV Neut % (Auto) Lymph % (Auto) [place] % (Auto) Eos % (Auto) Baso % (Auto) Neut # (Auto) Lymph # (Auto) [place] # (Auto) Eos # (Auto) Baso # (Auto) Immature Gran % Nucleated RBC % Immature Gran # Nucleated RBCs # Immature Plt Fraction Sodium Potassium Chloride Carbon Dioxide Anion Gap BUN Creatinine GFR Calculation BUN/Creatinine Ratio Glucose POC Glucose 61 L Hemoglobin A1c Calculated Osmolality Calcium Magnesium Total Bilirubin AST ALT Alkaline Phosphatase Total Creatine Kinase 701 H 609 H CK-MB (CK-2) 8.8 H 6.5 H CK and CKMB Interp 1.3 1.1 Troponin I 2.600 H 2.970 H B-Natriuretic Peptide Total Protein Albumin Globulin Albumin/Globulin Ratio Triglycerides Cholesterol LDL Cholesterol VLDL Cholesterol HDL Cholesterol Heart Disease Risk Ratio Hepatitis A IgM Ab Hep Bs Antigen Hep B Core IgM Ab Hepatitis C Antibody 12/04/16 12/04/16 12/04/16 00:19 01:03 03:46 WBC 6.7 RBC 2.44 L Hgb 7.3 L Hct 21.8 L MCV 89.3 MCH 30 MCHC 33.5 RDW 13.5 Plt Count 204 MPV 10.1 Neut % (Auto) 71.8 Lymph % (Auto) 15.6 L [place] % (Auto) 9.7 Eos % (Auto) 1.6 Baso % (Auto) 0.6 Neut # (Auto) 4.8 Lymph # (Auto) 1.0 L [place] # (Auto) 0.7 Eos # (Auto) 0.1 Baso # (Auto) 0.0 Immature Gran % 0.7 Nucleated RBC % 0.0 Immature Gran # 0.05 Nucleated RBCs # 0.00 Immature Plt Fraction 0.0 Sodium Potassium Chloride Carbon Dioxide Anion Gap BUN Creatinine GFR Calculation BUN/Creatinine Ratio Glucose POC Glucose 38 L* 102 Hemoglobin A1c Calculated Osmolality Calcium Magnesium Total Bilirubin AST ALT Alkaline Phosphatase Total Creatine Kinase CK-MB (CK-2) CK and CKMB Interp Troponin I B-Natriuretic Peptide Total Protein Albumin Globulin Albumin/Globulin Ratio Triglycerides Cholesterol LDL Cholesterol VLDL Cholesterol HDL Cholesterol Heart Disease Risk Ratio Hepatitis A IgM Ab Hep Bs Antigen Hep B Core IgM Ab Hepatitis C Antibody 12/04/16 12/04/16 12/04/16 03:46 03:46 03:46 WBC RBC Hgb Hct MCV MCH MCHC RDW Plt Count MPV Neut % (Auto) Lymph % (Auto) [place] % (Auto) Eos % (Auto) Baso % (Auto) Neut # (Auto) Lymph # (Auto) [place] # (Auto) Eos # (Auto) Baso # (Auto) Immature Gran % Nucleated RBC % Immature Gran # Nucleated RBCs # Immature Plt Fraction Sodium 145 Potassium 4.3 Chloride 113 H Carbon Dioxide 21 Anion Gap 15.3 H BUN 93 H Creatinine 6.10 H GFR Calculation 10 BUN/Creatinine Ratio 15.00 Glucose 22 L* POC Glucose Hemoglobin A1c 5.6 Calculated Osmolality 312.7 H Calcium 5.7 L* Magnesium 1.8 Total Bilirubin 0.70 AST 23 ALT 18 Alkaline Phosphatase 130 H Total Creatine Kinase CK-MB (CK-2) CK and CKMB Interp Troponin I B-Natriuretic Peptide 651 H Total Protein 5.3 L Albumin 2.6 L Globulin 2.7 Albumin/Globulin Ratio 0.9 L Triglycerides 61 Cholesterol 85 LDL Cholesterol 37.0 VLDL Cholesterol 12.2 HDL Cholesterol 43 Heart Disease Risk Ratio 1.98 Hepatitis A IgM Ab Hep Bs Antigen Hep B Core IgM Ab Hepatitis C Antibody 12/04/16 12/04/16 12/04/16 03:46 03:48 04:50 WBC RBC Hgb Hct MCV MCH MCHC RDW Plt Count MPV Neut % (Auto) Lymph % (Auto) [place] % (Auto) Eos % (Auto) Baso % (Auto) Neut # (Auto) Lymph # (Auto) [place] # (Auto) Eos # (Auto) Baso # (Auto) Immature Gran % Nucleated RBC % Immature Gran # Nucleated RBCs # Immature Plt Fraction Sodium Potassium Chloride Carbon Dioxide Anion Gap BUN Creatinine GFR Calculation BUN/Creatinine Ratio Glucose POC Glucose 22 L* 86 Hemoglobin A1c Calculated Osmolality Calcium Magnesium Total Bilirubin AST ALT Alkaline Phosphatase Total Creatine Kinase CK-MB (CK-2) CK and CKMB Interp Troponin I B-Natriuretic Peptide Total Protein Albumin Globulin Albumin/Globulin Ratio Triglycerides Cholesterol LDL Cholesterol VLDL Cholesterol HDL Cholesterol Heart Disease Risk Ratio Hepatitis A IgM Ab Negative Hep Bs Antigen Negative Hep B Core IgM Ab Negative Hepatitis C Antibody Negative 12/04/16 12/04/16 12/04/16 07:51 08:23 09:02 WBC RBC Hgb Hct MCV MCH MCHC RDW Plt Count MPV Neut % (Auto) Lymph % (Auto) [place] % (Auto) Eos % (Auto) Baso % (Auto) Neut # (Auto) Lymph # (Auto) [place] # (Auto) Eos # (Auto) Baso # (Auto) Immature Gran % Nucleated RBC % Immature Gran # Nucleated RBCs # Immature Plt Fraction Sodium Potassium Chloride Carbon Dioxide Anion Gap BUN Creatinine GFR Calculation BUN/Creatinine Ratio Glucose POC Glucose 54 L 125 H Hemoglobin A1c Calculated Osmolality Calcium Magnesium Total Bilirubin AST ALT Alkaline Phosphatase Total Creatine Kinase 663 H CK-MB (CK-2) 6.9 H CK and CKMB Interp 1.0 Troponin I 3.410 H B-Natriuretic Peptide Total Protein Albumin Globulin Albumin/Globulin Ratio Triglycerides Cholesterol LDL Cholesterol VLDL Cholesterol HDL Cholesterol Heart Disease Risk Ratio Hepatitis A IgM Ab Hep Bs Antigen Hep B Core IgM Ab Hepatitis C Antibody 12/04/16 12/04/16 12/04/16 10:55 11:22 12:06 WBC RBC Hgb 8.1 L Hct 24.3 L MCV MCH MCHC RDW Plt Count MPV Neut % (Auto) Lymph % (Auto) [place] % (Auto) Eos % (Auto) Baso % (Auto) Neut # (Auto) Lymph # (Auto) [place] # (Auto) Eos # (Auto) Baso # (Auto) Immature Gran % Nucleated RBC % Immature Gran # Nucleated RBCs # Immature Plt Fraction Sodium Potassium Chloride Carbon Dioxide Anion Gap BUN Creatinine GFR Calculation BUN/Creatinine Ratio Glucose POC Glucose 57 L 136 H Hemoglobin A1c Calculated Osmolality Calcium Magnesium Total Bilirubin AST ALT Alkaline Phosphatase Total Creatine Kinase CK-MB (CK-2) CK and CKMB Interp Troponin I B-Natriuretic Peptide Total Protein Albumin Globulin Albumin/Globulin Ratio Triglycerides Cholesterol LDL Cholesterol VLDL Cholesterol HDL Cholesterol Heart Disease Risk Ratio Hepatitis A IgM Ab Hep Bs Antigen Hep B Core IgM Ab Hepatitis C Antibody 12/04/16 12/04/16 12/04/16 14:19 16:08 16:38 WBC RBC Hgb Hct MCV MCH MCHC RDW Plt Count MPV Neut % (Auto) Lymph % (Auto) [place] % (Auto) Eos % (Auto) Baso % (Auto) Neut # (Auto) Lymph # (Auto) [place] # (Auto) Eos # (Auto) Baso # (Auto) Immature Gran % Nucleated RBC % Immature Gran # Nucleated RBCs # Immature Plt Fraction Sodium Potassium Chloride Carbon Dioxide Anion Gap BUN Creatinine GFR Calculation BUN/Creatinine Ratio Glucose POC Glucose 225 H 178 H Hemoglobin A1c Calculated Osmolality Calcium Magnesium Total Bilirubin AST ALT Alkaline Phosphatase Total Creatine Kinase 615 H CK-MB (CK-2) 6.1 H CK and CKMB Interp 1.0 Troponin I 3.030 H B-Natriuretic Peptide Total Protein Albumin Globulin Albumin/Globulin Ratio Triglycerides Cholesterol LDL Cholesterol VLDL Cholesterol HDL Cholesterol Heart Disease Risk Ratio Hepatitis A IgM Ab Hep Bs Antigen Hep B Core IgM Ab Hepatitis C Antibody
--- NOTE | 2016-12-04 09:52 | EKG Report ---
Stationary ECG Study [facility] Test Date: 12/04/2016 9:50:03 AM Pat Name: ARLINE SALCEDO Department: Room: 264 Gender: M Sock Turner: : 1965 Requested by: Janett Kim Order Number: [id number] Reading MD: MICA VALDIVIA Intervals [place] Rate: 93 P: 64 IA: 142 QRS: 47 QRSD: 91 T: 62 QT: 373 QTc: 424 Interpretive Statements SINUS RHYTHM INTERPRETATION BASED ON A DEFAULT AGE OF 40 YEARS Electronically Signed On 12-04-16 10:26:02 CDT by MICA VALDIVIA [email or web address]
[2016-12-04 10:15] LABS: Troponin I Only 3.41 NG/ML (0.00-0.045)
[2016-12-04] MEDS: CALCIUM (CARBONATE) 600 MG TABLET PO SCH ×2 (10:35→20:42)
[2016-12-04] MEDS: DEXTROSE 10% 1,000 ML IV SCH (10:35)
[2016-12-04] MEDS: GABAPENTIN 100 MG CAPSULE PO SCH ×3 (10:36→20:42)
[2016-12-04] MEDS: ASPIRIN EC 81 MG TABLET PO SCH (10:37)
[2016-12-04] MEDS: CARVEDILOL 3.125 MG TABLET PO SCH ×2 (10:37→20:43)
[2016-12-04 11:04] LABS: Hematocrit 24.3 VOL% (42.0-52.0); Hemoglobin 8.1 GM/DL (14.0-18.0)
[2016-12-04] MEDS ORDERED: methylPREDNISolone SOD SUC 125 MG/2 ML VIAL IV ONE (13:04)
--- NOTE | 2016-12-04 13:34 | Hospitalist Progress Note ---
Assessment and Plan - Time spent with patient Time spent with patient: Less than 30 minutes (1) Non-ST elevation [place] (NSTEMI) Status: Acute Assessment and plan: 12/03/16 Admit to Hospital Services Consult Cardiology (Patient of Dr Bender) Repeat troponin, serial repeat EKG repeat a.m. labs Echo Lipids A1c PRN pain management Sliding scale protocol for Glucose monitoring Discuss with Dr Oquendo for further recommendations with care. 12/04/16 Cardiology is following and greatly appreciate their assistance with care (troponin up to 3.410) A1c 5.6 - continue to monitor blood glucose, continue to hold diabetic medications, and continue d10 IV fluids BNP 651 - patient is being followed by renal for chronic kidney disease without dialysis result: Lipids - checked and reviewed, no changes needed Result: Hepatitis - negative Result: Echo - EF 40-45% repeat a.m. labs Will discuss with Dr Oquendo for further recommendations of care Current Visit: Yes (2) Syncope Status: Acute Current Visit: Yes (3) Chest pain Status: Acute Current Visit: No (4) CKD (chronic kidney disease) Status: Chronic Assessment and plan: 12/04/16 Renal is following and greatly appreciate assistance with care, continue to follow recommendations with care. 12/03/16 Patient was scheduled to see Dr Galdamez today at [facility] for following up for Chronic renal insufficiency Patient is a patient of Dr Alexander Current Visit: Yes Qualifiers: Chronic kidney disease stage: stage 5, not on chronic dialysis Qualified Code(s): N18.5 - Chronic kidney disease, stage 5 (5) Coronary artery disease Status: Chronic Current Visit: Yes (6) Diabetes mellitus Status: Chronic Current Visit: Yes Qualifiers: Diabetes mellitus type: type 2 Hospitalist: Subjective Interval history: 12/04/16 Mr Vaz seen and chart reviewed. He was up to shower the first time I attempted to visit him, returned and examined after shower. He reports feeling less occurrence of tightness in chest but still having frequent dizziness, most likely related to continues to have episodes of hypoglycemia, this a.m. changed IV fluids to dextrose 10 and will continue to monitor blood glucose levels. A1c 5.6 this a.m. His H&H was repeated this a.m. 8.1 & 24.3, history of chronic renal disease. Troponin continues to rise 3.410 without chest pain or shortness of breath. Cardiology is following and conferred care with Meghann Lynn NP this morning. Exam - Constitutional Vitals: Period Temp Pulse Resp BP Sys/Ford Pulse Ox Last 24 Hr 97.4 F-99.1 F 88-96 18-20 120-159/65-96 93-100 General appearance: normal weight, no acute distress - Head Head exam: Present: normal inspection - Eye Eye exam: Present: EOMI Pupils: Present: DOT - Neck Neck exam: Present: normal inspection - Respiratory Respiratory exam: Present: clear to auscultation bilaterally. Absent: wheezes - Cardiovascular Cardiovascular exam: Present: regular rate and rhythm - GI/Abdominal GI/Abdominal exam: Present: normal bowel sounds, soft. Absent: rebound - Extremities Exam Extremities exam: Present: full ROM, edema (1+ bilateral lower extremities, tight and shiny skin with pulses palpable) - Neurological Exam Neurological exam: Present: alert, oriented X3 - Psychiatric Psychiatric exam: Present: normal affect, normal mood. Absent: agitated, anxious - Skin Skin exam: Present: normal color, warm, dry Results - Labs CBC & BMP: 12/04/16 10:55 12/04/16 03:46 Lab Results: I have reviewed the past 24 hour labs Specialty Discharge - Follow Up or Referrals
--- NOTE | 2016-12-04 13:50 | Nephrology Progress Note ---
Nephrology - PN: Subj Interval history: The patient is resting. Glucoses have been running low. He mentions that he still has some shortness of breath at time. Serum creatinine is noted be 6.1. Discussed with patient that he may have to start dialysis within this hospitalization. At present, he is resistant. No fevers or chills. Serum troponin is noted to be 2.9. Cardiology is following. Exam (PN)-Nephrology - Vital Signs Vital signs: Period Temp Pulse Resp BP Sys/Ford Pulse Ox Last 24 Hr 97.4 F-99.1 F 88-96 18-20 120-159/65-96 93-100 - General Appearance General appearance: well-developed, well-nourished EENT: ATNC Neck: supple Respiratory: clear Cardiology: no edema, regular rate, regular rhythm Gastrointestinal: normoactive bowel sounds Neurologic: alert and oriented x3 Musculoskeletal: no clubbing Psychiatric: mood/affect appropriate, cooperative - Lab 12/04/16 10:55 12/04/16 03:46 Most recent lab results Calcium 5.7 MG/DL (8.5-10.1) L* 12/04/16 03:46 Magnesium 1.8 MG/DL (1.8-2.4) 12/04/16 03:46 Assessment and Plan (1) Hypoglycemia Status: Acute Current Visit: Yes (2) Renal insufficiency Status: Chronic Assessment and plan: BMP in a.m. Avoid nephrotoxic agents. Avoid NSAIDs. Will follow with you. Current Visit: No (3) Diabetes mellitus type 2, uncontrolled Status: Chronic Current Visit: No (4) Non-ST elevation [place] (NSTEMI) Status: Acute Assessment and plan: Elevated serum creatinine. Serial cardiac enzymes. Current Visit: Yes (5) CKD (chronic kidney disease) Status: Chronic Assessment and plan: The patient is close to start dialysis. I discussed with him his dialysis options. At present he is resistant. However if further cardiovascular intervention is needed in regards to patient's elevated troponin, then dialysis will likely be needed. Current Visit: Yes Qualifiers: Chronic kidney disease stage: stage 5, not on chronic dialysis Qualified Code(s): N18.5 - Chronic kidney disease, stage 5 Specialty Discharge - Follow Up or Referrals
[2016-12-04 15:26] LABS: Troponin I Only 3.03 NG/ML (0.00-0.045)
[2016-12-05] MEDS ORDERED: GLUCAGON 1 MG VIAL IM PRN (00:28)
[2016-12-05] MEDS ORDERED: DEXTROSE 50% 25 GM/50 ML VIAL IV PRN (00:28)
[2016-12-05] MEDS ORDERED: ONDANSETRON 4 MG/2 ML VIAL IV PRN (00:32)
[2016-12-05] MEDS: INSULIN LISPRO 100 UNIT/ML SUBCUT SCH ×8 (00:41→21:22)
[2016-12-05] MEDS ORDERED: INSULIN REGULAR 100 UNIT/ML SUBCUT ONE (02:39)
[2016-12-05] MEDS: DEXTROSE 10% 1,000 ML IV SCH (04:39)
[2016-12-05 05:43] LABS: Calcium 6.6 MG/DL (8.5-10.1); Magnesium 1.9 MG/DL (1.8-2.4); Osmolality,Calculated 316.8 MOS/KG (273-304)
[2016-12-05] MEDS: DEXTROSE 50% 25 GM/50 ML SYRINGE IV PRN (07:09)
[2016-12-05] MEDS: GABAPENTIN 100 MG CAPSULE PO SCH ×3 (08:29→21:22)
[2016-12-05] MEDS: ASPIRIN EC 81 MG TABLET PO SCH (08:29)
[2016-12-05] MEDS: CALCIUM (CARBONATE) 600 MG TABLET PO SCH ×2 (08:29→21:22)
[2016-12-05] MEDS: CARVEDILOL 3.125 MG TABLET PO SCH ×2 (08:29→21:22)
--- NOTE | 2016-12-05 12:22 | Cardiology Progress Note ---
Assessment and Plan (1) Hypoglycemia Status: Acute Current Visit: Yes (2) Syncope Status: Acute Current Visit: Yes (3) Anemia Status: Acute Current Visit: Yes (4) Renal insufficiency Status: Chronic Current Visit: No (5) Diabetes mellitus type 2, uncontrolled Status: Chronic Current Visit: No (6) Hypertension Status: Chronic Current Visit: No (7) Coronary artery disease Status: Chronic Current Visit: Yes (8) Non-ST elevation [place] (NSTEMI) Status: Acute Current Visit: Yes (9) Hx of past noncompliance Status: Chronic Current Visit: Yes Cardiology - PN: Subj Interval history: Interval history: Vitamin Manager: Dr. Bender PCP: Dr. Santana at [facility] SUMMARY: Mr. Vaz is a 51 y/o NA male who was transferred to our facility from [facility] after experiencing a syncopal episode thought to be related to hypoglycemia. When he regained consciousness, he had chest pain and was taken to the ER. Troponin at [facility] 2.9 with CKMB 8.6 and CPK 605. Initial glucose level was 24. EKG showed sinus rhythm with inferior T-wave inversions. 2016: Evening was uneventful. He denies any chest pain or shortness of breath. His blood sugars are now elevated, he has been on a dextrose drip. IMPRESSION/PLAN: 1. NSTEMI: His advanced renal insufficiency complicates the possibility of proceeding with cardiac catheterization. It is possible that his non-STEMI is secondary to the stress of his profound hypoglycemia which also included cerebral effects. Depending on how he evolves we may need to consider noninvasive testing versus left heart catheterization depending whether or not he is initiated on hemodialysis. 2. SYNCOPE: Thought to be due to hypoglycemia. Blood glucose level 24 upon initial check by [facility]. 3. Hypoglycemia: This is being managed by hospitalist service. 4. CHRONIC KIDNEY DISEASE, STAGE V: Followed routinely by nephrology, Dr. Galdamez and Dr. Alexander. Not currently on dialysis. Will avoid nephrotoxic agents and monitor BMP. If possible, he may be best treated medically instead of pursuing LHC with IV dye to avoid worsening renal function. Certainly, if he has recurrent anginal symptoms, he may require further cardiac evaluation. 5. CORONARY ARTERY DISEASE: He underwent CABG involving two vessels on 11/08/[address] Milligan (DOWLING to LAD and SVG to right PDA). He returned in 2013 with chest pain and underwent nuclear stress testing which was consistent with an area of inferoapical scar without evidence of significant ischemia. EF 43% at that time. Continue aspirin 81mg po daily. Will start low dose beta zenon. Will avoid BRITTANI/ARB due to impaired kidney function. 6. HYPERTENSION: I will increase his beta-zenon. 7. DIABETES MELLITUS: This is being treated by hospitalist service. 8. TOBACCO ABUSE: Chronic. We have already discussed with the benefits of tobacco cessation. 9. HISTORY OF NONCOMPLIANCE: Chronic. He has taken himself off of medications on numerous occasions but reports he has been recently compliant with medical therapy. 10. ELEVATED ALP: Hepatitis panel negative. Will defer to hospital medicine for further evaluation. 11. HYPOCALCEMIA: Treated by the hospitalist service. 12. ANEMIA: H&H not drawn today, we will need to continue to follow this. Exam (Progress Note) - Constitutional Vitals: Period Temp Pulse Resp BP Sys/Ford Pulse Ox Last 24 Hr 97.4 F-99.3 F 85-97 16-20 145-163/80-104 94-99 Exam: General appearance: normal weight, no acute distress - Head Head exam: Present: normal inspection, normocephalic, atraumatic. Absent: hematoma, laceration - Eye Eye exam: Present: EOMI. Absent: conjunctival injection, nystagmus, periorbital swelling, scleral icterus, laceration to eyelids Pupils: Present: PERRL. Absent: constricted, dilated, fixed, irregular, unequal - ENT ENT exam: Present: normal exam, normal external ear exam - Neck Neck exam: Present: normal inspection. Absent: lymphadenopathy, meningismus, tenderness, thyromegaly - Respiratory Respiratory exam: Present: clear to auscultation bilaterally. Absent: accessory muscle use, chest wall tenderness - Cardiovascular Cardiovascular exam: Present: regular rate and rhythm. Absent: carotid bruit, gallop, JVD, rubs - GI/Abdominal GI/Abdominal exam: Present: normal bowel sounds, soft. Absent: distended, firm , guarding, hernia, mass, tenderness, rebound. - Extremities Exam Extremities exam: Present: Decreased pulses bilateral lower extremities. Absent : calf tenderness, edema - Back Exam Back exam: Present: normal inspection. Absent: muscle spasm, vertebral tenderness - Neurological Exam Neurological exam: Present: alert, oriented X3, grossly intact without resting or intention tremor - Psychiatric Psychiatric exam: Present: normal affect, normal mood - Skin Skin exam: Present: normal color, warm, dry, intact. Absent: cyanosis, diaphoretic, rash, urticaria Result/EKG - Labs CBC & BMP: 12/04/16 10:55 12/05/16 04:10 Lab Results: I have reviewed the past 24 hour labs Labs: Laboratory Results - last 24 hr 12/04/16 12/04/16 12/04/16 14:19 16:08 16:38 Sodium Potassium Chloride Carbon Dioxide Anion Gap BUN Creatinine GFR Calculation BUN/Creatinine Ratio Glucose POC Glucose 225 H 178 H Calculated Osmolality Calcium Magnesium Total Creatine Kinase 615 H CK-MB (CK-2) 6.1 H CK and CKMB Interp 1.0 Troponin I 3.030 H 12/04/16 12/04/16 12/04/16 19:52 19:54 20:54 Sodium Potassium Chloride Carbon Dioxide Anion Gap BUN Creatinine GFR Calculation BUN/Creatinine Ratio Glucose POC Glucose 430 H 389 H 453 H Calculated Osmolality Calcium Magnesium Total Creatine Kinase CK-MB (CK-2) CK and CKMB Interp Troponin I 12/04/16 12/04/16 12/05/16 23:39 23:42 02:34 Sodium Potassium Chloride Carbon Dioxide Anion Gap BUN Creatinine GFR Calculation BUN/Creatinine Ratio Glucose POC Glucose > 500 H* > 500 H* > 500 H* Calculated Osmolality Calcium Magnesium Total Creatine Kinase CK-MB (CK-2) CK and CKMB Interp Troponin I 12/05/16 12/05/16 12/05/16 04:10 04:20 07:00 Sodium 137 Potassium 5.0 Chloride 107 Carbon Dioxide 19 L Anion Gap 16.0 H BUN 101 H Creatinine 6.40 H GFR Calculation 10 BUN/Creatinine Ratio 15.00 Glucose 318 H POC Glucose 313 H < 20 L* Calculated Osmolality 316.8 H Calcium 6.6 L Magnesium 1.9 Total Creatine Kinase CK-MB (CK-2) CK and CKMB Interp Troponin I 12/05/16 12/05/16 12/05/16 07:02 07:05 07:23 Sodium Potassium Chloride Carbon Dioxide Anion Gap BUN Creatinine GFR Calculation BUN/Creatinine Ratio Glucose POC Glucose < 20 L* < 20 L* 122 H Calculated Osmolality Calcium Magnesium Total Creatine Kinase CK-MB (CK-2) CK and CKMB Interp Troponin I 12/05/16 12/05/16 12/05/16 07:50 08:56 09:55 Sodium Potassium Chloride Carbon Dioxide Anion Gap BUN Creatinine GFR Calculation BUN/Creatinine Ratio Glucose POC Glucose 96 103 154 H Calculated Osmolality Calcium Magnesium Total Creatine Kinase CK-MB (CK-2) CK and CKMB Interp Troponin I 12/05/16 12/05/16 10:49 12:06 Sodium Potassium Chloride Carbon Dioxide Anion Gap BUN Creatinine GFR Calculation BUN/Creatinine Ratio Glucose POC Glucose 174 H 201 H Calculated Osmolality Calcium Magnesium Total Creatine Kinase CK-MB (CK-2) CK and CKMB Interp Troponin I Specialty Discharge - Follow Up or Referrals
--- NOTE | 2016-12-05 14:25 | Hospitalist Progress Note ---
Assessment and Plan (1) Non-ST elevation [place] (NSTEMI) Status: Acute Assessment and plan: The patient's troponin is trending downward will recheck again in the morning. Blood glucose is better controlled after he was on dextrose infusion and no further hypoglycemic episodes have occurred. I am going to discontinue dextrose infusion and continue sliding scale determinations. I anticipate discharge home tomorrow. Current Visit: Yes (2) Diabetes mellitus Status: Chronic Current Visit: Yes Qualifiers: Diabetes mellitus type: type 2 (3) CKD (chronic kidney disease) Status: Chronic Current Visit: Yes Qualifiers: Chronic kidney disease stage: stage 5, not on chronic dialysis Qualified Code(s): N18.5 - Chronic kidney disease, stage 5 Hospitalist: Subjective Interval history: Mr. Vaz is ambulatory in the hallway. He has less foot pain today than he had yesterday. Has shortness of breath with exertion but no angina. Exam - Constitutional Vitals: Period Temp Pulse Resp BP Sys/Ford Pulse Ox Last 24 Hr 97.4 F-99.3 F 84-97 16-20 145-178/80-104 94-99 General appearance: no acute distress - Respiratory Respiratory exam: Present: clear to auscultation bilaterally - Cardiovascular Cardiovascular exam: Present: regular rate and rhythm Results - Labs CBC & BMP: 12/04/16 10:55 12/05/16 04:10 Lab Results: I have reviewed the past 24 hour labs Specialty Discharge - Follow Up or Referrals
[2016-12-05 16:26] LABS: Osmolality,Calculated 307.1 MOS/KG (273-304); Potassium 5.6 MMOL/L (3.5-5.1)
--- NOTE | 2016-12-05 16:37 | Nephrology Progress Note ---
Nephrology - PN: Subj Interval history: The patient is resting. Glucoses have been running low. He mentions that he still has some shortness of breath at time. Serum creatinine is noted be 6.1. Discussed with patient that he may have to start dialysis within this hospitalization. At present, he is resistant. No fevers or chills. Serum troponin is noted to be 2.9. Cardiology is following. 12/05/2016. The patient is up and relate in his room. Denies any shortness of breath. Serum creatinine is 5.9 which is trending downward. Glucoses have improved now at 210. Exam (PN)-Nephrology - Vital Signs Vital signs: Period Temp Pulse Resp BP Sys/Ford Pulse Ox Last 24 Hr 97.4 F-99.2 F 84-97 16-20 145-178/80-94 94-98 - General Appearance General appearance: well-developed, well-nourished EENT: ATNC Neck: supple Respiratory: clear Cardiology: regular rate, regular rhythm Gastrointestinal: normoactive bowel sounds Integumentary: no rash Neurologic: alert and oriented x3, CN 3-12 intact Musculoskeletal: no deformities, no clubbing Psychiatric: mood/affect appropriate - Lab 12/04/16 10:55 12/05/16 15:54 Most recent lab results Calcium 7.0 MG/DL (8.5-10.1) L 12/05/16 15:54 Magnesium 1.9 MG/DL (1.8-2.4) 12/05/16 04:10 Assessment and Plan (1) Hypoglycemia Status: Acute Current Visit: Yes (2) Renal insufficiency Status: Chronic Assessment and plan: BMP in a.m. Avoid nephrotoxic agents. Avoid NSAIDs. Current Visit: No (3) Diabetes mellitus type 2, uncontrolled Status: Chronic Current Visit: No (4) Non-ST elevation [place] (NSTEMI) Status: Acute Assessment and plan: Elevated serum creatinine. Serial cardiac enzymes. Current Visit: Yes (5) CKD (chronic kidney disease) Status: Chronic Assessment and plan: The patient is to protect left arm from blood draws and blood pressure measurements. Continue to discuss with patient about renal replacement therapy options. Current Visit: Yes Qualifiers: Chronic kidney disease stage: stage 5, not on chronic dialysis Qualified Code(s): N18.5 - Chronic kidney disease, stage 5 Specialty Discharge - Follow Up or Referrals
[2016-12-06 05:14] LABS: Magnesium 2.1 MG/DL (1.8-2.4); Osmolality,Calculated 314.4 MOS/KG (273-304); Potassium 5.8 MMOL/L (3.5-5.1)
[2016-12-06] MEDS: INSULIN LISPRO 100 UNIT/ML SUBCUT SCH ×4 (07:53→21:16)
[2016-12-06] MEDS: ASPIRIN EC 81 MG TABLET PO SCH (08:40)
[2016-12-06] MEDS: CALCIUM (CARBONATE) 600 MG TABLET PO SCH ×2 (08:40→21:12)
[2016-12-06] MEDS: CARVEDILOL 3.125 MG TABLET PO SCH ×3 (08:41→21:15)
[2016-12-06] MEDS: GABAPENTIN 100 MG CAPSULE PO SCH ×3 (08:41→21:12)
--- NOTE | 2016-12-06 08:43 | Hospitalist Progress Note ---
Assessment and Plan (1) Non-ST elevation [place] (NSTEMI) Status: Acute Assessment and plan: The patient's troponin is trending downward will recheck again in the morning. Blood glucose is better controlled after he was on dextrose infusion and no further hypoglycemic episodes have occurred. I am going to discontinue dextrose infusion and continue sliding scale determinations. I anticipate discharge home tomorrow. Current Visit: Yes (2) Diabetes mellitus Status: Chronic Current Visit: Yes Qualifiers: Diabetes mellitus type: type 2 (3) CKD (chronic kidney disease) Status: Chronic Current Visit: Yes Qualifiers: Chronic kidney disease stage: stage 5, not on chronic dialysis Qualified Code(s): N18.5 - Chronic kidney disease, stage 5 Hospitalist: Subjective Interval history: Mr. Vaz has chronic kidney disease stage V with glomerular filtration rate of about 10. The patient was admitted to the hospital with profound hypoglycemia and altered mental status. We held antidiabetic medications and supportive glucose with dextrose infusion. The patient has regained stable condition. The patient's antihypertensive regimen has been adjusted and his diuretic medicine increased to 120 mg once daily. The patient is now ready for discharge home and will likely require dialysis within the year. On the date of discharge, the chest is clear abdomen soft and heart has regular rate and rhythm. Patient medications were reconciled upon admission, and again at the time of discharge. The patient was screened for tobacco use and found to be a occasional smoker. The patient was given 4 minutes of tobacco avoidance education. The patient's medical decsion maker is themself, and when asked, they asked to be Full code. Discharge Time was 32 minutes, including final examination, evaluation and planning, education, reconciliation of medications, writing prescriptions, coordinating care with bottle caser, and preparing discharge documentation. Exam - Constitutional Vitals: Period Temp Pulse Resp BP Sys/Ford Pulse Ox Last 24 Hr 97.8 F-98.7 F 78-87 16-18 150-194/90-114 96-99 Results - Labs CBC & BMP: 12/04/16 10:55 12/06/16 03:45 Specialty Discharge - Follow Up or Referrals
--- NOTE | 2016-12-06 08:47 | Discharge Summary ---
Hospital Course - Hospital Course Hospital Course: Mr. Vaz has chronic kidney disease stage V with glomerular filtration rate of about 10. The patient was admitted to the hospital with profound hypoglycemia and altered mental status. We held antidiabetic medications and supportive glucose with dextrose infusion. The patient has regained stable condition. The patient's antihypertensive regimen has been adjusted and his diuretic medicine increased to 120 mg once daily. The patient is now ready for discharge home and will likely require dialysis within the year. The patient was noted to have minor elevation of troponin at the time of admission to the hospital. This was likely on account of small non-ST elevation myocardial infarction brought about by profound hypoglycemia. On the date of discharge, the chest is clear abdomen soft and heart has regular rate and rhythm. Patient medications were reconciled upon admission, and again at the time of discharge. The patient was screened for tobacco use and found to be a occasional smoker. The patient was given 4 minutes of tobacco avoidance education. The patient's medical decsion maker is themself, and when asked, they asked to be Full code. Discharge Time was 32 minutes, including final examination, evaluation and planning, education, reconciliation of medications, writing prescriptions, coordinating care with test case developer, and preparing discharge documentation. - Time spent with patient Time with patient DS: Greater than 30 minutes Time spent discussing smoking cessation with patient: 3 to 10 minutes Diagnosis - Discharge Diagnosis (1) Non-ST elevation [place] (NSTEMI) Status: Resolved (2) Diabetes mellitus Status: Chronic (3) CKD (chronic kidney disease) Status: Chronic Specialty Discharge - Follow Up or Referrals Discharge Plan - Discharge Data Disposition: Disch To Home/Self Care Condition at Discharge: Stable Discharge Diet: diabetic diet Activity: resume usual activities as tolerated Hygiene: no restrictions - Discharge Medications New Furosemide Tab [Lasix Tab] 160 mg PO DAILY #90 tablet Carvedilol [Coreg] 3.125 mg PO BID tablet Continue Aspirin [Ecotrin] 81 mg PO DAILY Multivitamin (Centrum) [Centrum Tab] 1 tablet PO DAILY Calcium (Carbonate) [Caltrate 600] 1,200 mg PO BID amLODIPine [Norvasc] 5 mg PO DAILY Simvastatin 10 mg PO DAILY Gabapentin Cap/Tab [Neurontin Cap/Tab] 100 mg PO TID Discontinued hydrALAZINE TAB [Apresoline Tab] 50 mg PO TID Furosemide Tab [Lasix Tab] 40 mg PO TID Ibuprofen Tab [Motrin Tab] 600 mg PO Q6H PRN PRN Reason: Pain Saxagliptin HCl [Onglyza] 2.5 mg PO DAILY glipiZIDE [Glipizide Xl] 10 mg PO DAILY - Follow Up or Referral - Forms/Instructions Instructions: Myocardial Infarction (GEN), Coronary Artery Disease (GEN), Left Heart Catheterization (DC), How to Stop Smoking (GEN), Heart Healthy Diet (GEN) , Cigarette Smoking and Your Health (GEN) Exam - Constitutional Vitals: Period Temp Pulse Resp BP Sys/Ford Pulse Ox Last 24 Hr 97.8 F-98.7 F 78-87 16-18 150-194/90-114 96-99 Discharge Results Labs on day of discharge: Labs from last 24 hours 12/06/16 12/06/16 12/06/16 07:03 03:59 03:45 INR PT Patient/Control Mix Sodium 140 Potassium 5.8 H Chloride 109 H Carbon Dioxide 23 Anion Gap 13.8 BUN 102 H Creatinine 5.90 H GFR Calculation 11 BUN/Creatinine Ratio 17.00 Glucose 171 H POC Glucose 149 H 177 H Calculated Osmolality 314.4 H Calcium 7.0 L Magnesium 2.1 12/06/16 12/05/16 12/05/16 03:45 23:08 21:22 INR 1.0 PT Patient/Control Mix 11.0 Sodium Potassium Chloride Carbon Dioxide Anion Gap BUN Creatinine GFR Calculation BUN/Creatinine Ratio Glucose POC Glucose 185 H 137 H Calculated Osmolality Calcium Magnesium 12/05/16 12/05/16 12/05/16 17:50 15:54 15:43 INR PT Patient/Control Mix Sodium 135 L Potassium 5.6 H Chloride 104 Carbon Dioxide 22 Anion Gap 14.6 BUN 103 H Creatinine 5.90 H GFR Calculation 11 BUN/Creatinine Ratio 17.00 Glucose 210 H POC Glucose 133 H 226 H Calculated Osmolality 307.1 H Calcium 7.0 L Magnesium 12/05/16 12/05/16 12/05/16 12:06 10:49 09:55 INR PT Patient/Control Mix Sodium Potassium Chloride Carbon Dioxide Anion Gap BUN Creatinine GFR Calculation BUN/Creatinine Ratio Glucose POC Glucose 201 H 174 H 154 H Calculated Osmolality Calcium Magnesium 12/05/16 08:56 INR PT Patient/Control Mix Sodium Potassium Chloride Carbon Dioxide Anion Gap BUN Creatinine GFR Calculation BUN/Creatinine Ratio Glucose POC Glucose 103 Calculated Osmolality Calcium Magnesium DS: Provider Date of admission: 12/03/16 12:56 Primary care physician: Ceasar Herzog MD Attending physician on admission: Clark Oquendo MD Consults: 12/03/16 13:36 Consult to Physician [CONS] Routine Comment: Consulting Provider: Alvina Tate When should Consulting Provider be notified: Now Consult to Specialist Group: Cardiology Person Notified: Jennifer Date Notified: 12/03/16 Time Notified: 14:25 Consult Notification Comment: Elevated Troponin at [facility] Patient known to Dr Bender HX: CABG (2 vessel) 12/03/16 13:38 Consult to Case Mgmt/Social Srvs [CONS] Routine Reason for Case Mgmt/Social Srvs: Discharge Planning 12/03/16 14:08 Consult to [facility], Educator [CONS] Routine Reason for [employer]: Diabetes Education 12/03/16 14:23 Consult to Physician [CONS] Routine Comment: patient is known to Dr Alexander and Dr Galdamez ([facility]) Consulting Provider: Miguelangel Garrett When should Consulting Provider be notified: Now Consult to Specialist Group: Nephrology Person Notified: Martha Date Notified: 12/03/16 Time Notified: 14:45 Consult Notification Comment: 12/04/16 06:22 Consult to Cardiac Rehabilitation [CONS] Routine Reason for Cardiac Rehabilitation: Risk Factor Modification Discharging clinician: Clark Oquendo MD
--- NOTE | 2016-12-06 11:42 | Nephrology Progress Note ---
Nephrology - PN: Subj Interval history: The patient is resting. Glucoses have been running low. He mentions that he still has some shortness of breath at time. Serum creatinine is noted be 6.1. Discussed with patient that he may have to start dialysis within this hospitalization. At present, he is resistant. No fevers or chills. Serum troponin is noted to be 2.9. Cardiology is following. 12/05/2016. The patient is up and relate in his room. Denies any shortness of breath. Serum creatinine is 5.9 which is trending downward. Glucoses have improved now at 210. 19 2016. Patient is resting comfortably no acute changes. No shortness of breath or chest pain. Serum creatinine is 5.9. Patient will follow me at [facility] on next . Continue to encourage patient about getting a dialysis access he has remained resistant. Exam (PN)-Nephrology - Vital Signs Vital signs: Period Temp Pulse Resp BP Sys/Ford Pulse Ox Last 24 Hr 97.8 F-98.7 F 78-87 16-18 150-194/90-114 96-99 - General Appearance General appearance: well-developed, well-nourished EENT: ATNC Neck: supple Respiratory: clear Cardiology: regular rate, regular rhythm Gastrointestinal: normoactive bowel sounds, no tenderness Neurologic: alert and oriented x3 Musculoskeletal: no clubbing Psychiatric: mood/affect appropriate - Lab 12/04/16 10:55 12/06/16 03:45 Most recent lab results Calcium 7.0 MG/DL (8.5-10.1) L 12/06/16 03:45 Magnesium 2.1 MG/DL (1.8-2.4) 12/06/16 03:45 Assessment and Plan (1) Hypoglycemia Status: Acute Current Visit: Yes (2) Renal insufficiency Status: Chronic Assessment and plan: Avoid nephrotoxic agents. Avoid NSAIDs. Current Visit: No (3) Diabetes mellitus type 2, uncontrolled Status: Chronic Current Visit: No (4) Non-ST elevation [place] (NSTEMI) Status: Resolved Assessment and plan: Elevated serum creatinine. Serial cardiac enzymes. Current Visit: Yes (5) CKD (chronic kidney disease) Status: Chronic Assessment and plan: The patient is to protect left arm from blood draws and blood pressure measurements. Continue to discuss with patient about renal replacement therapy options. Follow-up with me at [facility] nephrology clinic on next . Current Visit: Yes Qualifiers: Chronic kidney disease stage: stage 5, not on chronic dialysis Qualified Code(s): N18.5 - Chronic kidney disease, stage 5 Specialty Discharge - Follow Up or Referrals
[2016-12-06] MEDS: DEXTROSE 5% 1,000 ML IV SCH (16:15)
[2016-12-07] MEDS: DEXTROSE 5% 1,000 ML IV SCH ×2 (05:28→20:05)
[2016-12-07] MEDS: INSULIN LISPRO 100 UNIT/ML SUBCUT SCH ×2 (08:38→11:14)
[2016-12-07] MEDS: CARVEDILOL 3.125 MG TABLET PO SCH ×4 (08:39→21:06)
[2016-12-07] MEDS: ASPIRIN EC 81 MG TABLET PO SCH (08:39)
[2016-12-07] MEDS: GABAPENTIN 100 MG CAPSULE PO SCH ×3 (08:39→21:06)
[2016-12-07] MEDS: CALCIUM (CARBONATE) 600 MG TABLET PO SCH ×2 (08:39→21:06)
--- NOTE | 2016-12-07 11:51 | Nephrology Progress Note ---
Nephrology - PN: Subj Interval history: The patient is resting. Glucoses have been running low. He mentions that he still has some shortness of breath at time. Serum creatinine is noted be 6.1. Discussed with patient that he may have to start dialysis within this hospitalization. At present, he is resistant. No fevers or chills. Serum troponin is noted to be 2.9. Cardiology is following. 12/05/2016. The patient is up and relate in his room. Denies any shortness of breath. Serum creatinine is 5.9 which is trending downward. Glucoses have improved now at 210. 2016. Patient is resting comfortably no acute changes. No shortness of breath or chest pain. Serum creatinine is 5.9. Patient will follow me at [facility] on next . Continue to encourage patient about getting a dialysis access he has remained resistant. 12/07/2016 patient is resting. His complaints is bilateral feet pain. He is on Neurontin 100 mg 3 times daily. No other acute changes. No shortness of breath or chest pain. Exam (PN)-Nephrology - Vital Signs Vital signs: Period Temp Pulse Resp BP Sys/Ford Pulse Ox Last 24 Hr 98.2 F-99.7 F 83-90 16-20 158-188/82-113 98-99 - General Appearance General appearance: well-developed, well-nourished EENT: ATNC Neck: supple Respiratory: clear Cardiology: regular rate, regular rhythm Gastrointestinal: normoactive bowel sounds, no tenderness, no guarding Neurologic: alert and oriented x3 - Lab 12/04/16 10:55 12/06/16 03:45 Most recent lab results Calcium 7.0 MG/DL (8.5-10.1) L 12/06/16 03:45 Magnesium 2.1 MG/DL (1.8-2.4) 12/06/16 03:45 Assessment and Plan (1) Hypoglycemia Status: Acute Current Visit: Yes (2) Renal insufficiency Status: Chronic Assessment and plan: Avoid nephrotoxic agents. Avoid NSAIDs. Current Visit: No (3) Diabetes mellitus type 2, uncontrolled Status: Chronic Current Visit: No (4) Non-ST elevation [place] (NSTEMI) Status: Resolved Assessment and plan: Elevated serum creatinine. Serial cardiac enzymes. Current Visit: Yes (5) CKD (chronic kidney disease) Status: Chronic Assessment and plan: The patient is to protect left arm from blood draws and blood pressure measurements. Continue to discuss with patient about renal replacement therapy options. Follow-up with me at [facility] nephrology clinic on next . Current Visit: Yes Qualifiers: Chronic kidney disease stage: stage 5, not on chronic dialysis Qualified Code(s): N18.5 - Chronic kidney disease, stage 5 Specialty Discharge - Follow Up or Referrals
--- NOTE | 2016-12-07 13:25 | Cardiology Progress Note ---
<Meghann Lynn E - Last Filed: 12/07/16 13:14> Assessment and Plan - Time spent with patient Time spent with patient: Less than 30 minutes (1) Non-ST elevation [place] (NSTEMI) Status: Resolved Assessment and plan: See plan of care listed below. Current Visit: Yes (2) Elevated troponin Status: Acute Assessment and plan: See plan of care listed below. Current Visit: Yes (3) Syncope Status: Acute Assessment and plan: See plan of care listed below. Current Visit: Yes (4) CKD (chronic kidney disease) Status: Chronic Assessment and plan: See plan of care listed below. Current Visit: Yes Qualifiers: Chronic kidney disease stage: stage 5, not on chronic dialysis Qualified Code(s): N18.5 - Chronic kidney disease, stage 5 (5) Coronary artery disease Status: Chronic Assessment and plan: See plan of care listed below. Current Visit: Yes (6) Hypertension Status: Chronic Assessment and plan: See plan of care listed below. Current Visit: No (7) Diabetes mellitus Status: Chronic Assessment and plan: See plan of care listed below. Current Visit: Yes Qualifiers: Diabetes mellitus type: type 2 (8) Tobacco abuse Status: Chronic Assessment and plan: See plan of care listed below. Current Visit: Yes (9) Hx of past noncompliance Status: Chronic Assessment and plan: See plan of care listed below. Current Visit: Yes Cardiology - PN: Subj Interval history: House Wirer Helper: Dr. Bender (last seen in 2013) PCP: Dr. Santana at [facility] SUMMARY: Mr. Vaz is a 51 y/o NA male who was transferred to our facility from [facility] after experiencing a syncopal episode thought to be related to hypoglycemia. When he regained consciousness, he had chest pain and was taken to the ER. Troponin at [facility] 2.9 with CKMB 8.6 and CPK 605. Initial glucose level was 24. EKG showed sinus rhythm with inferior T-wave inversions. 2016: Mr. Vaz seen on the telemetry unit this morning. He was planned for discharge yesterday; however, this was held due to further episodes of hypoglycemia. He continues to have pain in his BLE. Will further discuss with Dr. Bender regarding the need for further cardiac evaluation. IMPRESSION/PLAN: 1. NSTEMI: His profound renal insufficiency complicates the possibility of proceeding with cardiac catheterization. It is possible that his non-STEMI is secondary to the stress of his profound hypoglycemia which also included cerebral effects. Depending on how he evolves we may need to consider noninvasive testing as a first option. 2. ELEVATED TROPONIN: Troponin peak was 3.410 with CKMB 6.9 and CKMB 663. Troponin now trending down. 3. SYNCOPE: Thought to be due to hypoglycemia. Blood glucose level 24 upon initial check by [facility]. 4. CHRONIC KIDNEY DISEASE, STAGE V: Followed routinely by nephrology, Dr. Galdamez and Dr. Alexander. Not currently on dialysis. Will avoid nephrotoxic agents and monitor BMP. If possible, he may be best treated medically instead of pursuing LHC with IV dye to avoid worsening renal function. Certainly, if he has recurrent anginal symptoms, he may require further cardiac evaluation. 5. CORONARY ARTERY DISEASE: He underwent CABG involving two vessels on 11/08/[address] Milligan (DOWLING to LAD and SVG to right PDA). He returned in 2013 with chest pain and underwent nuclear stress testing which was consistent with an area of inferoapical scar without evidence of significant ischemia. EF 43% at that time. Continue aspirin 81mg po daily. He is tolerating low dose beta zenon. Will avoid BRITTANI/ARB due to impaired kidney function. 6. HYPERTENSION: Blood pressure has been elevated today. Will start him on hydralazine 25mg po TID. Will continue to monitor and adjust accordingly. 7. DIABETES MELLITUS: Uncontrolled. He has been started on accuchecks. 8. TOBACCO ABUSE: Chronic. Greater than 5 minutes was spent discussing the benefits of tobacco cessation. 9. HISTORY OF NONCOMPLIANCE: Chronic. He has taken himself off of medications on numerous occasions but reports he has been recently compliant with medical therapy. 10. ELEVATED ALP: Hepatitis panel negative. Will defer to hospital medicine for further evaluation. 11. HYPOCALCEMIA: He is on calcium carbonate 1200mg po BID. 12. ANEMIA: H&H has not been checked in several days. Will recheck CBC in AM. Exam (Progress Note) - Constitutional Vitals: Period Temp Pulse Resp BP Sys/Ford Pulse Ox Last 24 Hr 98.0 F-99.7 F 83-90 16-20 158-188/82-113 97-99 Exam: General appearance: Pleasant and cooperative. no acute distress. Head exam: Present: normal inspection, normocephalic, atraumatic. Absent: hematoma, laceration Eye exam: Present: EOMI. Absent: conjunctival injection, nystagmus, periorbital swelling, scleral icterus, laceration to eyelids, jaundice Pupils: Present: PERRL. Absent: constricted, dilated, fixed, irregular, unequal ENT exam: Present: normal exam, normal external ear exam, mucous membranes moist. Neck exam: Present: normal inspection, midline trachea. Absent: masses, lymphadenopathy, tenderness, thyromegaly, carotid bruit Respiratory exam: Present: clear to auscultation bilaterally. Absent: accessory muscle use, chest wall tenderness, rales, rhonchi, wheezing. Cardiovascular exam: Present: regular rate and rhythm. Absent: gallop, JVD, rubs, murmur GI/Abdominal exam: Present: normal bowel sounds, soft. Absent: distended, firm , hernia, mass, tenderness. Extremities exam: Present: Normal Gait, No Clubbing, No Cyanosis, Upper Extr. Pulses 2+, Faint PT pulses palpable bilaterally, 1+ BLE edema. Pain in BLE ( tops and bottoms of feet). Capillary refill less than 3 seconds. Musculoskeletal: Present: No Fluid Collection, Normal Range of Motion Back exam: Present: normal inspection. Absent: muscle spasm, vertebral tenderness Neurological exam: Present: awake, alert, oriented X3, Moves all extremities well without hemiparesis or paralysis. Grossly intact without resting or essential tremor Psychiatric exam: Present: quiet, somewhat of a flat affect Skin exam: Present: normal color, warm, dry, intact. Absent: cyanosis, diaphoretic, rash, urticaria Result/EKG - Labs CBC & BMP: 12/04/16 10:55 12/06/16 03:45 Lab Results: I have reviewed the past 24 hour labs Labs: Laboratory Results - last 24 hr 12/05/16 12/06/16 12/06/16 23:08 15:44 16:20 POC Glucose Cancelled 34 L* 97 12/06/16 12/06/16 12/06/16 17:17 18:24 19:09 POC Glucose 108 H 155 H 144 H 12/06/16 12/07/16 12/07/16 23:51 04:37 07:22 POC Glucose 211 H 190 H 141 H 12/07/16 11:09 POC Glucose 200 H - EKG EKG results: interpreted by me, sinus rhythm Specialty Discharge - Follow Up or Referrals <Pieter Bender - Last Filed: 12/07/16 16:48> Cardiology - PN: Subj Interval history: I have discussed in detail the particulars of this case and I have examined the patient and reviewed the patient's chart both current and old. I was directly involved in the patient's evaluation and management and I completely agree with Meghann Lynn NP regarding this patient's evaluation and treatment plan. Exam (Progress Note) - Constitutional Vitals: Period Temp Pulse Resp BP Sys/Ford Pulse Ox Last 24 Hr 98.0 F-99.7 F 82-90 16-20 158-188/82-113 97-99 Result/EKG - Labs CBC & BMP: 12/04/16 10:55 12/06/16 03:45 Labs: Laboratory Results - last 24 hr 12/05/16 12/06/16 12/06/16 23:08 15:44 16:20 POC Glucose Cancelled 34 L* 97 12/06/16 12/06/16 12/06/16 17:17 18:24 19:09 POC Glucose 108 H 155 H 144 H 12/06/16 12/07/16 12/07/16 23:51 04:37 07:22 POC Glucose 211 H 190 H 141 H 12/07/16 12/07/16 12/07/16 11:09 14:59 15:48 POC Glucose 200 H 260 H 231 H
[2016-12-07] MEDS: hydrALAZINE 25 MG TABLET PO SCH ×2 (14:41→21:06)
--- NOTE | 2016-12-07 17:17 | Hospitalist Progress Note ---
Assessment and Plan (1) CKD (chronic kidney disease) Status: Chronic Current Visit: Yes Qualifiers: Chronic kidney disease stage: stage 5, not on chronic dialysis Qualified Code(s): N18.5 - Chronic kidney disease, stage 5 (2) Hypoglycemia Status: Acute Assessment and plan: Improving Off D5 now Current Visit: Yes (3) Non-ST elevation [place] (NSTEMI) Status: Resolved Assessment and plan: Cardiology assisting Current Visit: Yes Hospitalist: Subjective Interval history: No acute events overnight. Complaining of leg pain today. Exam - Constitutional Vitals: Period Temp Pulse Resp BP Sys/Ford Pulse Ox Last 24 Hr 98.0 F-99.7 F 82-90 16-20 158-188/82-113 97-99 General appearance: normal weight - Head Head exam: Present: normocephalic, atraumatic - Eye Eye exam: Present: EOMI Pupils: Present: DOT - ENT ENT exam: Present: normal exam - Neck Neck exam: Present: normal inspection - Respiratory Respiratory exam: Present: clear to auscultation bilaterally. Absent: wheezes - Cardiovascular Cardiovascular exam: Present: regular rate and rhythm - GI/Abdominal GI/Abdominal exam: Present: normal bowel sounds, soft. Absent: tenderness, rebound - Extremities Exam Extremities exam: Present: normal inspection - Back Exam Back exam: Present: normal inspection - Neurological Exam Neurological exam: Present: alert, oriented X3 - Psychiatric Psychiatric exam: Present: normal affect, normal mood - Skin Skin exam: Present: warm, intact Results - Labs CBC & BMP: 12/04/16 10:55 12/06/16 03:45 Specialty Discharge - Follow Up or Referrals
[2016-12-08 04:42] LABS: Basophils % 0.4 % (0.0-0.8); Eosinophils # 0.1 10*3/uL (0.0-0.87); Eosinophils % 0.7 % (0.00-10.9); Hematocrit 22.2 VOL% (42.0-52.0); Hemoglobin 7.2 GM/DL (14.0-18.0); Immature Granulocytes % 0.4 %; Immature Granulocytes Absolute 0.05 #; Lymphocytes # 1.4 10*3/uL (1.4-4.0); Lymphocytes % 12.2 % (21.2-54.2); Mean Corpuscular HGB Conc 32.4 GM/DL (32-36); Mean Corpuscular Hemoglobin 30 PG (27-34); Monocytes # 1.1 10*3/uL (0.11-0.8); Monocytes % 9.9 % (1.7-12.7); Neutrophils # 8.7 10*3/uL (1.4-7.4); Neutrophils % 76.4 % (38.7-73.9); Platelet Count 201 T/CUMM (130-400); Red Blood Count 2.44 MC/CUMM (3.8-5.5); Red Cell Distribution Width 12.9 % (9.3-17.3); White Blood Count 11.4 T/CUMM (4-12)
[2016-12-08 05:23] LABS: Calcium 7.2 MG/DL (8.5-10.1); Osmolality,Calculated 312.3 MOS/KG (273-304); Potassium 5.7 MMOL/L (3.5-5.1)
[2016-12-08] MEDS: DEXTROSE 5% 1,000 ML IV SCH ×2 (08:34→21:30)
[2016-12-08] MEDS: CALCIUM (CARBONATE) 600 MG TABLET PO SCH ×2 (08:36→20:53)
[2016-12-08] MEDS: ASPIRIN EC 81 MG TABLET PO SCH (08:36)
[2016-12-08] MEDS: GABAPENTIN 100 MG CAPSULE PO SCH (08:36)
[2016-12-08] MEDS: hydrALAZINE 25 MG TABLET PO SCH ×3 (08:36→20:54)
[2016-12-08] MEDS: CARVEDILOL 3.125 MG TABLET PO SCH (08:36)
--- NOTE | 2016-12-08 12:11 | Nephrology Progress Note ---
Nephrology - PN: Subj Interval history: The patient is resting. Glucoses have been running low. He mentions that he still has some shortness of breath at time. Serum creatinine is noted be 6.1. Discussed with patient that he may have to start dialysis within this hospitalization. At present, he is resistant. No fevers or chills. Serum troponin is noted to be 2.9. Cardiology is following. 12/05/2016. The patient is up and relate in his room. Denies any shortness of breath. Serum creatinine is 5.9 which is trending downward. Glucoses have improved now at 210. 2016. Patient is resting comfortably no acute changes. No shortness of breath or chest pain. Serum creatinine is 5.9. Patient will follow me at [facility] on next . Continue to encourage patient about getting a dialysis access he has remained resistant. 12/07/2016 patient is resting. His complaints is bilateral feet pain. He is on Neurontin 100 mg 3 times daily. No other acute changes. No shortness of breath or chest pain. Patient is resting. Creatinine is noted be 5.2. Hematocrit is down to 22.2. May need blood transfusion. Continue to talk with patient about renal replacement therapy options. Exam (PN)-Nephrology - Vital Signs Vital signs: Period Temp Pulse Resp BP Sys/Ford Pulse Ox Last 24 Hr 99.5 F-100.4 F 82-96 16-20 164-183/83-103 93-99 - General Appearance General appearance: well-developed, well-nourished EENT: ATNC Neck: supple Respiratory: clear Cardiology: regular rate, regular rhythm Gastrointestinal: normoactive bowel sounds, no tenderness Neurologic: alert and oriented x3 Psychiatric: mood/affect appropriate, cooperative - Lab 12/08/16 03:30 12/08/16 03:30 Most recent lab results Calcium 7.2 MG/DL (8.5-10.1) L 12/08/16 03:30 Magnesium 2.0 MG/DL (1.8-2.4) 12/08/16 03:30 Assessment and Plan (1) Hypoglycemia Status: Acute Current Visit: Yes (2) Renal insufficiency Status: Chronic Assessment and plan: Avoid nephrotoxic agents. Avoid NSAIDs. Current Visit: No (3) Diabetes mellitus type 2, uncontrolled Status: Chronic Current Visit: No (4) Non-ST elevation [place] (NSTEMI) Status: Resolved Current Visit: Yes (5) CKD (chronic kidney disease) Status: Chronic Assessment and plan: The patient is to protect left arm from blood draws and blood pressure measurements. Continue to discuss with patient about renal replacement therapy options. Current Visit: Yes Qualifiers: Chronic kidney disease stage: stage 5, not on chronic dialysis Qualified Code(s): N18.5 - Chronic kidney disease, stage 5 Specialty Discharge - Follow Up or Referrals
[2016-12-08] MEDS ORDERED: SODIUM CHLORIDE 0.9% 250 ML IV PRN (12:27)
[2016-12-08] MEDS: GABAPENTIN 300 MG CAPSULE PO SCH ×2 (14:46→20:54)
--- NOTE | 2016-12-08 15:46 | Cardiology Progress Note ---
<Meghann Lynn E - Last Filed: 12/08/16 15:48> Assessment and Plan - Time spent with patient Time spent with patient: Less than 30 minutes (1) Non-ST elevation GA (NSTEMI) Status: Resolved Assessment and plan: See plan of care listed below. Current Visit: Yes (2) Elevated troponin Status: Acute Assessment and plan: See plan of care listed below. Current Visit: Yes (3) Syncope Status: Acute Assessment and plan: See plan of care listed below. Current Visit: Yes (4) CKD (chronic kidney disease) Status: Chronic Assessment and plan: See plan of care listed below. Current Visit: Yes Qualifiers: Chronic kidney disease stage: stage 5, not on chronic dialysis Qualified Code(s): N18.5 - Chronic kidney disease, stage 5 (5) Coronary artery disease Status: Chronic Assessment and plan: See plan of care listed below. Current Visit: Yes (6) Hypertension Status: Chronic Assessment and plan: See plan of care listed below. Current Visit: No (7) Diabetes mellitus Status: Chronic Assessment and plan: See plan of care listed below. Current Visit: Yes Qualifiers: Diabetes mellitus type: type 2 (8) Tobacco abuse Status: Chronic Assessment and plan: See plan of care listed below. Current Visit: Yes (9) Hx of past noncompliance Status: Chronic Assessment and plan: See plan of care listed below. Current Visit: Yes Cardiology - PN: Subj Interval history: Industrial Economist: Dr. Bender (last seen in 2013) PCP: Dr. Santana at [facility] SUMMARY: Mr. Vaz is a 51 y/o NA male who was transferred to our facility from [facility] after experiencing a syncopal episode thought to be related to hypoglycemia. When he regained consciousness, he had chest pain and was taken to the ER. Troponin at [facility] 2.9 with CKMB 8.6 and CPK 605. Initial glucose level was 24. EKG showed sinus rhythm with inferior T-wave inversions. He was planned for discharge on 12/06, however he continued to have recurrent hypoglycemia and his discharge was postponed. 2016: Mr. Vaz is seen on telemetry this afternoon receiving a unit of blood. H&H 7.2 & 22.2 this morning. Suspect this is related to his kidney disease as he has had no obvious signs of bleeding. I have discussed his case with Dr. Bender and Dr. Villalpando and we will continue to treat Mr. Vaz medically for his NSTEMI at this time. Certainly, if we proceeded with left heart catheterization, he would sustain further renal injury likely requiring him to be placed on dialysis, which may be required eventually regardless. He reports he is feeling some better, he continues to complain about bilateral foot pain, likely related to his diabetic neuropathy. His glucose levels have improved significantly and he has not had a significant drop since 12/06/16 around 1600. IMPRESSION/PLAN: 1. NSTEMI: His profound renal insufficiency complicates the possibility of proceeding with cardiac catheterization. It is possible that his non-STEMI is secondary to the stress of his profound hypoglycemia which also included cerebral effects. We will continue to treat him medically and continue him on Aspirin, Plavix, Coreg. Will continue statin therapy if his CPK has further trended down. 2. ELEVATED TROPONIN: Troponin peak was 3.410 with CKMB 6.9 and CKMB 663. Troponin now trending down. 3. SYNCOPE: Thought to be due to hypoglycemia. Blood glucose level 24 upon initial check by [facility]. 4. CHRONIC KIDNEY DISEASE, STAGE V: Followed routinely by nephrology, Dr. Galdamez and Dr. Alexander. Not currently on dialysis. Will avoid nephrotoxic agents and monitor BMP. If possible, he may be best treated medically instead of pursuing LHC with IV dye to avoid worsening renal function. Certainly, if he has recurrent anginal symptoms, he may require cardiac evaluation. 5. CORONARY ARTERY DISEASE: He underwent CABG involving two vessels on 11/08/[address] Milligan (DOWLING to LAD and SVG to right PDA). He returned in 2013 with chest pain and underwent nuclear stress testing which was consistent with an area of inferoapical scar without evidence of significant ischemia. EF 43% at that time. Continue aspirin 81mg po daily. He is tolerating low dose beta zenon. Will avoid BRITTANI/ARB due to impaired kidney function. 6. HYPERTENSION: He was started on hydralazine 25mg po TID. Blood pressures remain mildly elevated. HR in 80s. Will increase Coreg to 6.25mg po BID. Will continue to monitor and adjust accordingly. 7. DIABETES MELLITUS: Uncontrolled. He has been started on accuchecks. 8. TOBACCO ABUSE: Chronic. Greater than 5 minutes was spent discussing the benefits of tobacco cessation. 9. HISTORY OF NONCOMPLIANCE: Chronic. He has taken himself off of medications on numerous occasions but reports he has been recently compliant with medical therapy. 10. ELEVATED ALP: Hepatitis panel negative. Will defer to hospital medicine for further evaluation. 11. HYPOCALCEMIA: He is on calcium carbonate 1200mg po BID. 12. ANEMIA: H&H dropped to 7.2 & 22.2 this morning and he is receiving blood transfusion. Suspect this is related to his kidney disease as he has had no obvious signs of bleeding. Exam (Progress Note) - Constitutional Vitals: Period Temp Pulse Resp BP Sys/Ford Pulse Ox Last 24 Hr 98.1 F-100.4 F 84-96 16-20 157-182/83-103 93-97 Exam: General appearance: Pleasant and cooperative. no acute distress. Head exam: Present: normal inspection, normocephalic, atraumatic. Absent: hematoma, laceration Eye exam: Present: EOMI. Absent: conjunctival injection, nystagmus, periorbital swelling, scleral icterus, laceration to eyelids, jaundice Pupils: Present: PERRL. Absent: constricted, dilated, fixed, irregular, unequal ENT exam: Present: normal exam, normal external ear exam, mucous membranes moist. Neck exam: Present: normal inspection, midline trachea. Absent: masses, lymphadenopathy, tenderness, thyromegaly, carotid bruit Respiratory exam: Present: clear to auscultation bilaterally. Absent: accessory muscle use, chest wall tenderness, rales, rhonchi, wheezing. Cardiovascular exam: Present: regular rate and rhythm. Absent: gallop, JVD, rubs, murmur GI/Abdominal exam: Present: normal bowel sounds, soft. Absent: distended, firm , hernia, mass, tenderness. Extremities exam: Present: Normal Gait, No Clubbing, No Cyanosis, Upper Extr. Pulses 2+, Faint PT pulses palpable bilaterally, 1+ BLE edema. Pain in BLE ( tops and bottoms of feet). Capillary refill less than 3 seconds. Musculoskeletal: Present: No Fluid Collection, Normal Range of Motion Back exam: Present: normal inspection. Absent: muscle spasm, vertebral tenderness Neurological exam: Present: awake, alert, oriented X3, Moves all extremities well without hemiparesis or paralysis. Grossly intact without resting or essential tremor Psychiatric exam: Present: quiet, somewhat of a flat affect Skin exam: Present: normal color, warm, dry, intact. Absent: cyanosis, diaphoretic, rash, urticaria Result/EKG - Labs CBC & BMP: 12/08/16 03:30 12/08/16 03:30 Lab Results: I have reviewed the past 24 hour labs Labs: Laboratory Results - last 24 hr 12/07/16 12/07/16 12/07/16 15:48 18:56 23:43 WBC RBC Hgb Hct MCV MCH MCHC RDW Plt Count MPV Neut % (Auto) Lymph % (Auto) [place] % (Auto) Eos % (Auto) Baso % (Auto) Neut # (Auto) Lymph # (Auto) [place] # (Auto) Eos # (Auto) Baso # (Auto) Immature Gran % Nucleated RBC % Immature Gran # Nucleated RBCs # Immature Plt Fraction Sodium Potassium Chloride Carbon Dioxide Anion Gap BUN Creatinine GFR Calculation BUN/Creatinine Ratio Glucose POC Glucose 231 H 258 H 210 H Calculated Osmolality Uric Acid Calcium Magnesium Blood Type Antibody Screen Crossmatch 12/08/16 12/08/16 12/08/16 03:30 03:30 03:30 WBC 11.4 D RBC 2.44 L Hgb 7.2 L Hct 22.2 L MCV 91.0 MCH 30 MCHC 32.4 RDW 12.9 Plt Count 201 MPV 10.0 Neut % (Auto) 76.4 H Lymph % (Auto) 12.2 L [place] % (Auto) 9.9 Eos % (Auto) 0.7 Baso % (Auto) 0.4 Neut # (Auto) 8.7 H Lymph # (Auto) 1.4 [place] # (Auto) 1.1 H Eos # (Auto) 0.1 Baso # (Auto) 0.0 Immature Gran % 0.4 Nucleated RBC % 0.0 Immature Gran # 0.05 Nucleated RBCs # 0.00 Immature Plt Fraction 0.0 Sodium 141 Potassium 5.7 H Chloride 112 H Carbon Dioxide 21 Anion Gap 13.7 BUN 92 H Creatinine 5.20 H GFR Calculation 13 BUN/Creatinine Ratio 17.00 Glucose 171 H POC Glucose Calculated Osmolality 312.3 H Uric Acid Calcium 7.2 L Magnesium 2.0 Blood Type O POSITIVE Antibody Screen Negative Crossmatch See Detail 12/08/16 12/08/16 12/08/16 04:22 07:17 11:16 WBC RBC Hgb Hct MCV MCH MCHC RDW Plt Count MPV Neut % (Auto) Lymph % (Auto) [place] % (Auto) Eos % (Auto) Baso % (Auto) Neut # (Auto) Lymph # (Auto) [place] # (Auto) Eos # (Auto) Baso # (Auto) Immature Gran % Nucleated RBC % Immature Gran # Nucleated RBCs # Immature Plt Fraction Sodium Potassium Chloride Carbon Dioxide Anion Gap BUN Creatinine GFR Calculation BUN/Creatinine Ratio Glucose POC Glucose 173 H 189 H 249 H Calculated Osmolality Uric Acid Calcium Magnesium Blood Type Antibody Screen Crossmatch 12/08/16 12/08/16 Unknown Unknown WBC RBC Hgb Hct MCV MCH MCHC RDW Plt Count MPV Neut % (Auto) Lymph % (Auto) [place] % (Auto) Eos % (Auto) Baso % (Auto) Neut # (Auto) Lymph # (Auto) [place] # (Auto) Eos # (Auto) Baso # (Auto) Immature Gran % Nucleated RBC % Immature Gran # Nucleated RBCs # Immature Plt Fraction Sodium Potassium Chloride Carbon Dioxide Anion Gap BUN Creatinine GFR Calculation BUN/Creatinine Ratio Glucose POC Glucose Calculated Osmolality Uric Acid 9.8 H Calcium Magnesium Blood Type O POSITIVE Antibody Screen Crossmatch - EKG EKG results: interpreted by me, sinus rhythm Specialty Discharge - Follow Up or Referrals Follow up with: Pieter Bender MD [Physician] - 2 Weeks (Follow up with Dr. Bender in 2-4 weeks. ) <Pieter Bender - Last Filed: 12/08/16 16:11> Cardiology - PN: Subj Interval history: I have discussed in detail the particulars of this case and I have examined the patient and reviewed the patient's chart both current and old. I was directly involved in the patient's evaluation and management and I completely agree with Meghann Lynn NP regarding this patient's evaluation and treatment plan. Exam (Progress Note) - Constitutional Vitals: Period Temp Pulse Resp BP Sys/Ford Pulse Ox Last 24 Hr 98.1 F-100.4 F 84-96 16-20 157-182/83-103 93-97 Result/EKG - Labs CBC & BMP: 12/08/16 03:30 12/08/16 03:30 Labs: Laboratory Results - last 24 hr 12/07/16 12/07/16 12/08/16 18:56 23:43 03:30 WBC 11.4 D RBC 2.44 L Hgb 7.2 L Hct 22.2 L MCV 91.0 MCH 30 MCHC 32.4 RDW 12.9 Plt Count 201 MPV 10.0 Neut % (Auto) 76.4 H Lymph % (Auto) 12.2 L [place] % (Auto) 9.9 Eos % (Auto) 0.7 Baso % (Auto) 0.4 Neut # (Auto) 8.7 H Lymph # (Auto) 1.4 [place] # (Auto) 1.1 H Eos # (Auto) 0.1 Baso # (Auto) 0.0 Immature Gran % 0.4 Nucleated RBC % 0.0 Immature Gran # 0.05 Nucleated RBCs # 0.00 Immature Plt Fraction 0.0 Sodium Potassium Chloride Carbon Dioxide Anion Gap BUN Creatinine GFR Calculation BUN/Creatinine Ratio Glucose POC Glucose 258 H 210 H Calculated Osmolality Uric Acid Calcium Magnesium Blood Type Antibody Screen Crossmatch 12/08/16 12/08/16 12/08/16 03:30 03:30 04:22 WBC RBC Hgb Hct MCV MCH MCHC RDW Plt Count MPV Neut % (Auto) Lymph % (Auto) [place] % (Auto) Eos % (Auto) Baso % (Auto) Neut # (Auto) Lymph # (Auto) [place] # (Auto) Eos # (Auto) Baso # (Auto) Immature Gran % Nucleated RBC % Immature Gran # Nucleated RBCs # Immature Plt Fraction Sodium 141 Potassium 5.7 H Chloride 112 H Carbon Dioxide 21 Anion Gap 13.7 BUN 92 H Creatinine 5.20 H GFR Calculation 13 BUN/Creatinine Ratio 17.00 Glucose 171 H POC Glucose 173 H Calculated Osmolality 312.3 H Uric Acid Calcium 7.2 L Magnesium 2.0 Blood Type O POSITIVE Antibody Screen Negative Crossmatch See Detail 12/08/16 12/08/16 12/08/16 07:17 11:16 14:41 WBC RBC Hgb Hct MCV MCH MCHC RDW Plt Count MPV Neut % (Auto) Lymph % (Auto) [place] % (Auto) Eos % (Auto) Baso % (Auto) Neut # (Auto) Lymph # (Auto) [place] # (Auto) Eos # (Auto) Baso # (Auto) Immature Gran % Nucleated RBC % Immature Gran # Nucleated RBCs # Immature Plt Fraction Sodium Potassium Chloride Carbon Dioxide Anion Gap BUN Creatinine GFR Calculation BUN/Creatinine Ratio Glucose POC Glucose 189 H 249 H 279 H Calculated Osmolality Uric Acid Calcium Magnesium Blood Type Antibody Screen Crossmatch 12/08/16 12/08/16 Unknown Unknown WBC RBC Hgb Hct MCV MCH MCHC RDW Plt Count MPV Neut % (Auto) Lymph % (Auto) [place] % (Auto) Eos % (Auto) Baso % (Auto) Neut # (Auto) Lymph # (Auto) [place] # (Auto) Eos # (Auto) Baso # (Auto) Immature Gran % Nucleated RBC % Immature Gran # Nucleated RBCs # Immature Plt Fraction Sodium Potassium Chloride Carbon Dioxide Anion Gap BUN Creatinine GFR Calculation BUN/Creatinine Ratio Glucose POC Glucose Calculated Osmolality Uric Acid 9.8 H Calcium Magnesium Blood Type O POSITIVE Antibody Screen Crossmatch
--- NOTE | 2016-12-08 16:19 | Hospitalist Progress Note ---
Assessment and Plan (1) CKD (chronic kidney disease) Status: Chronic Assessment and plan: Nephrology assisting Current Visit: Yes Qualifiers: Chronic kidney disease stage: stage 5, not on chronic dialysis Qualified Code(s): N18.5 - Chronic kidney disease, stage 5 (2) Hypoglycemia Status: Resolved Assessment and plan: Improving Off D5 now Current Visit: Yes (3) Non-ST elevation [place] (NSTEMI) Status: Resolved Assessment and plan: Cardiology assisting Starting plavix and aspirin Current Visit: Yes (4) Bilateral foot pain Status: Acute Assessment and plan: Described as pins and needles I favor this being due to diabetic neuropathy It is noted that uric acid is elevated but this can be elevated for many reasons including renal failure Current Visit: Yes (5) Anemia Status: Acute Assessment and plan: Transfusing 2 units PRBCs Current Visit: Yes Hospitalist: Subjective Interval history: No acute events overnight. Patient still complains of bilateral foot pain, located on the top of his feet and ankles. He describes this as a pins and needles type of pain. Exam - Constitutional Vitals: Period Temp Pulse Resp BP Sys/Ford Pulse Ox Last 24 Hr 98.1 F-100.4 F 84-96 16-20 157-182/83-103 93-97 General appearance: normal weight - Head Head exam: Present: normocephalic, atraumatic - Eye Eye exam: Present: EOMI Pupils: Present: DOT - ENT ENT exam: Present: normal exam - Neck Neck exam: Present: normal inspection - Respiratory Respiratory exam: Present: clear to auscultation bilaterally. Absent: wheezes - Cardiovascular Cardiovascular exam: Present: regular rate and rhythm - GI/Abdominal GI/Abdominal exam: Present: normal bowel sounds, soft. Absent: tenderness, rebound - Extremities Exam Extremities exam: Present: normal inspection - Back Exam Back exam: Present: normal inspection - Neurological Exam Neurological exam: Present: alert, oriented X3 - Psychiatric Psychiatric exam: Present: normal affect, normal mood - Skin Skin exam: Present: warm, intact Results - Labs CBC & BMP: 12/08/16 03:30 12/08/16 03:30 Specialty Discharge - Follow Up or Referrals Follow up with: Pieter Bender MD [Physician] - 2 Weeks (Follow up with Dr. Bender in 2-4 weeks. )
[2016-12-08] MEDS: CLOPIDOGREL 75 MG TABLET PO SCH (16:59)
[2016-12-08 17:49] LABS: Apearance,Urine Slightly Hazy (Clear); Bacteria,Urine Occasional /HPF (Few); Bilirubin,Urine Negative (Negative); Blood, Urine Small mg/dL (Negative); Glucose,Urine (UA) 50 mg/dL (Negative); Ketones,Urine Negative (Negative); Nitrite,Urine Negative (Negative); Protein,Urine >=500 MG/DL; RBC,Urine 34 /HPF (0-4); Squamous Epithelial Cell,Urine Occasional /HPF (0-10); Urine Color Yellow (Yellow); Urine Urobilinogen < 2.0 EU/DL (0.2-1.0); WBC,Urine 3 /HPF (0-6)
[2016-12-08] MEDS ORDERED: LABETALOL 20 MG/4 ML SYRINGE IV ONE (18:12)
[2016-12-08] MEDS: CARVEDILOL 6.25 MG TABLET PO SCH (20:54)
[2016-12-08 22:51] LABS: Hematocrit 26.2 VOL% (42.0-52.0); Hemoglobin 8.6 GM/DL (14.0-18.0)
[2016-12-09 03:53] LABS: Basophils % 0.3 % (0.0-0.8); Eosinophils # 0.1 10*3/uL (0.0-0.87); Eosinophils % 0.9 % (0.00-10.9); Hematocrit 25.2 VOL% (42.0-52.0); Hemoglobin 8.3 GM/DL (14.0-18.0); Immature Granulocytes % 0.4 %; Immature Granulocytes Absolute 0.04 #; Lymphocytes # 1.3 10*3/uL (1.4-4.0); Lymphocytes % 12.2 % (21.2-54.2); Mean Corpuscular HGB Conc 32.9 GM/DL (32-36); Mean Corpuscular Hemoglobin 30 PG (27-34); Mean Corpuscular Volume 89.7 FL (87-102); Mean Platelet Volume 9.9 FL (9.6-12.0); Monocytes % 9.7 % (1.7-12.7); Neutrophils # 7.9 10*3/uL (1.4-7.4); Neutrophils % 76.5 % (38.7-73.9); Platelet Count 175 T/CUMM (130-400); Red Blood Count 2.81 MC/CUMM (3.8-5.5); Red Cell Distribution Width 13.7 % (9.3-17.3); White Blood Count 10.4 T/CUMM (4-12)
[2016-12-09 04:33] LABS: Calcium 6.8 MG/DL (8.5-10.1); Osmolality,Calculated 310.4 MOS/KG (273-304); Potassium 5.9 MMOL/L (3.5-5.1)
[2016-12-09] MEDS: CLOPIDOGREL 75 MG TABLET PO SCH (08:48)
[2016-12-09] MEDS: hydrALAZINE 25 MG TABLET PO SCH ×3 (08:48→22:14)
[2016-12-09] MEDS: CARVEDILOL 6.25 MG TABLET PO SCH ×2 (08:48→22:14)
[2016-12-09] MEDS: CALCIUM (CARBONATE) 600 MG TABLET PO SCH ×2 (08:48→22:13)
[2016-12-09] MEDS: GABAPENTIN 300 MG CAPSULE PO SCH ×3 (08:49→22:14)
[2016-12-09] MEDS: ASPIRIN EC 81 MG TABLET PO SCH (08:49)
--- NOTE | 2016-12-09 12:50 | Nephrology Progress Note ---
Nephrology - PN: Subj Interval history: The patient is resting. Glucoses have been running low. He mentions that he still has some shortness of breath at time. Serum creatinine is noted be 6.1. Discussed with patient that he may have to start dialysis within this hospitalization. At present, he is resistant. No fevers or chills. Serum troponin is noted to be 2.9. Cardiology is following. 12/05/2016. The patient is up and relate in his room. Denies any shortness of breath. Serum creatinine is 5.9 which is trending downward. Glucoses have improved now at 210. 2016. Patient is resting comfortably no acute changes. No shortness of breath or chest pain. Serum creatinine is 5.9. Patient will follow me at [facility] on next . Continue to encourage patient about getting a dialysis access he has remained resistant. 12/07/2016 patient is resting. His complaints is bilateral feet pain. He is on Neurontin 100 mg 3 times daily. No other acute changes. No shortness of breath or chest pain. 12/08/2016Patient is resting. Creatinine is noted be 5.2. Hematocrit is down to 22.2. May need blood transfusion. Continue to talk with patient about renal replacement therapy options. 12/09/2016. The patient is resting. Did have low blood glucose levels earlier today. Sugars are now 150. No shortness of breath or chest pain. Patient expressed to me that he did his left him and that he has no one at home to watch him. See resistant about renal replacement therapy is more concerned about who is on a care for him at home. Exam (PN)-Nephrology - Vital Signs Vital signs: Period Temp Pulse Resp BP Sys/Ford Pulse Ox Last 24 Hr 98.1 F-100.2 F 77-88 16-20 135-189/75-101 94-97 - General Appearance General appearance: well-developed, well-nourished EENT: ATNC Neck: supple Respiratory: clear Cardiology: no edema, regular rate, regular rhythm Gastrointestinal: normoactive bowel sounds, no tenderness Integumentary: no rash Neurologic: alert and oriented x3 Musculoskeletal: no clubbing Psychiatric: mood/affect appropriate, cooperative - Lab 12/09/16 02:27 12/09/16 02:27 Most recent lab results Calcium 6.8 MG/DL (8.5-10.1) L 12/09/16 02:27 Magnesium 2.0 MG/DL (1.8-2.4) 12/08/16 03:30 Assessment and Plan (1) Hypoglycemia Status: Resolved Current Visit: Yes (2) Renal insufficiency Status: Chronic Assessment and plan: Avoid nephrotoxic agents. Avoid NSAIDs. Current Visit: No (3) Diabetes mellitus type 2, uncontrolled Status: Chronic Current Visit: No (4) Non-ST elevation SD (NSTEMI) Status: Resolved Assessment and plan: Elevated serum creatinine. Serial cardiac enzymes. Current Visit: Yes (5) CKD (chronic kidney disease) Status: Chronic Assessment and plan: The patient is to protect left arm from blood draws and blood pressure measurements. Continue to discuss with patient about renal replacement therapy options. Current Visit: Yes Qualifiers: Chronic kidney disease stage: stage 5, not on chronic dialysis Qualified Code(s): N18.5 - Chronic kidney disease, stage 5 Specialty Discharge - Follow Up or Referrals Follow up with: Pieter Bender MD [Physician] - 01/05/17 9:20 am (Follow up with Dr. Bender in 2-4 weeks. )
[2016-12-09] MEDS: DEXTROSE 5% 1,000 ML IV SCH (14:34)
--- NOTE | 2016-12-09 16:15 | Hospitalist Progress Note ---
Assessment and Plan (1) CKD (chronic kidney disease) Status: Chronic Assessment and plan: Nephrology assisting Current Visit: Yes Qualifiers: Chronic kidney disease stage: stage 5, not on chronic dialysis Qualified Code(s): N18.5 - Chronic kidney disease, stage 5 (2) Hypoglycemia Status: Resolved Assessment and plan: Resolved Current Visit: Yes (3) Non-ST elevation [place] (NSTEMI) Status: Resolved Assessment and plan: Cardiology assisting plavix and aspirin Current Visit: Yes (4) Bilateral foot pain Status: Acute Assessment and plan: Described as pins and needles I favor this being due to diabetic neuropathy It is noted that uric acid is elevated but this can be elevated for many reasons including renal failure Current Visit: Yes (5) Anemia Status: Acute Assessment and plan: Transfused 2 units PRBCs 12/08/16 Current Visit: Yes Hospitalist: Subjective Interval history: No acute events overnight. Patient continues to complain of bilateral foot pain. Believe that he is nearing discharge and can follow-up with cardiology and nephrology outpatient. Possible discharge tomorrow. Exam - Constitutional Vitals: Period Temp Pulse Resp BP Sys/Ford Pulse Ox Last 24 Hr 98.4 F-100.2 F 73-87 16-20 135-189/75-101 95-97 General appearance: normal weight - Head Head exam: Present: normocephalic, atraumatic - Eye Eye exam: Present: EOMI Pupils: Present: DOT - ENT ENT exam: Present: normal exam - Neck Neck exam: Present: normal inspection - Respiratory Respiratory exam: Present: clear to auscultation bilaterally. Absent: rhonchi, wheezes - Cardiovascular Cardiovascular exam: Present: regular rate and rhythm - GI/Abdominal GI/Abdominal exam: Present: normal bowel sounds, soft. Absent: tenderness, rebound - Extremities Exam Extremities exam: Present: normal inspection - Back Exam Back exam: Present: normal inspection - Neurological Exam Neurological exam: Present: alert, oriented X3 - Psychiatric Psychiatric exam: Present: normal affect, normal mood - Skin Skin exam: Present: warm, intact Results - Labs CBC & BMP: 12/09/16 02:27 12/09/16 02:27 Specialty Discharge - Follow Up or Referrals Follow up with: Pieter Bender MD [Physician] - 01/05/17 9:20 am (Follow up with Dr. Bender in 2-4 weeks. )
--- NOTE | 2016-12-09 16:54 | Cardiology Progress Note ---
Assessment and Plan - Time spent with patient Time spent with patient: Less than 30 minutes (1) Non-ST elevation [place] (NSTEMI) Status: Resolved Assessment and plan: See plan of care listed below. Current Visit: Yes (2) Elevated troponin Status: Acute Assessment and plan: See plan of care listed below. Current Visit: Yes (3) Syncope Status: Acute Assessment and plan: See plan of care listed below. Current Visit: Yes (4) CKD (chronic kidney disease) Status: Chronic Assessment and plan: See plan of care listed below. Current Visit: Yes Qualifiers: Chronic kidney disease stage: stage 5, not on chronic dialysis Qualified Code(s): N18.5 - Chronic kidney disease, stage 5 (5) Coronary artery disease Status: Chronic Assessment and plan: See plan of care listed below. Current Visit: Yes (6) Hypertension Status: Chronic Assessment and plan: See plan of care listed below. Current Visit: No (7) Diabetes mellitus Status: Chronic Assessment and plan: See plan of care listed below. Current Visit: Yes Qualifiers: Diabetes mellitus type: type 2 (8) Tobacco abuse Status: Chronic Assessment and plan: See plan of care listed below. Current Visit: Yes (9) Hx of past noncompliance Status: Chronic Assessment and plan: See plan of care listed below. Current Visit: Yes Cardiology - PN: Subj Interval history: Correspondence Review Clerk: Dr. Bender (last seen in 2013) PCP: Dr. Santana at [facility] SUMMARY: Mr. Vaz is a 51 y/o NA male who was transferred to our facility from [facility] after experiencing a syncopal episode thought to be related to hypoglycemia. When he regained consciousness, he had chest pain and was taken to the ER. Troponin at [facility] 2.9 with CKMB 8.6 and CPK 605. Initial glucose level was 24. EKG showed sinus rhythm with inferior T-wave inversions. He was planned for discharge on 12/06, however he continued to have recurrent hypoglycemia and his discharge was postponed. His H&H was noted to be 7.2 and 22.2 and he required blood transfusion. This is suspected to be related to his kidney disease as he has had no obvious signs of bleeding. 2016: Mr. Vaz is seen resting in the bed on the telemetry unit today. Nephrology has been following and Mr. Vaz remains somewhat resistant to renal replacement therapy and is concerned about who will care for him at home. Our correctional counselor/case manager [place]. At this time, we will continue to treat Mr. Vaz medically for his NSTEMI. Certainly, if we proceeded with left heart catheterization, he would sustain further renal injury likely requiring him to be placed on dialysis, which may be required eventually regardless. He reports he is feeling some better, he continues to complain about bilateral foot pain, likely related to his diabetic neuropathy. We will plan to let him recover from his acute issues and pursue further cardiac evaluation as an outpatient. If he winds up being placed on dialysis, we could pursue cardiac catheterization; however, if he remains resistant to hemodialysis, it is likely he will need noninvasive screening with nuclear stress testing. At this time, he is on appropriate medical therapy and is stable from a cardiac standpoint and we will sign off. Please feel free to call us if we can be of further assistance or if new cardiac issues arise. Mr. Vaz should continue with aspirin, plavix, Coreg, simvastatin, and hydralazine. IMPRESSION/PLAN: 1. NSTEMI: His profound renal insufficiency complicates the possibility of proceeding with cardiac catheterization. It is possible that his non-STEMI is secondary to the stress of his profound hypoglycemia which also included cerebral effects. We will continue to treat him medically and continue him on Aspirin, Plavix, Coreg. CPK now returned to normal. We have resumed his statin. 2. ELEVATED TROPONIN: Troponin peak was 3.410 with CKMB 6.9 and CKMB 663. Cardiac enzymes have trended down. 3. SYNCOPE: Thought to be due to hypoglycemia. Blood glucose level 24 upon initial check by [facility]. 4. CHRONIC KIDNEY DISEASE, STAGE V: Followed routinely by nephrology, Dr. Galdamez and Dr. Alexander. Not currently on dialysis. Will avoid nephrotoxic agents and monitor BMP. If possible, he may be best treated medically instead of pursuing LHC with IV dye to avoid worsening renal function. Certainly, if he has recurrent anginal symptoms, he may require cardiac evaluation. 5. CORONARY ARTERY DISEASE: He underwent CABG involving two vessels on 11/08/[address] Milligan (DOWLING to LAD and SVG to right PDA). He returned in 2013 with chest pain and underwent nuclear stress testing which was consistent with an area of inferoapical scar without evidence of significant ischemia. EF 43% at that time. Continue aspirin 81mg po daily. He is tolerating low dose beta zneon. Will avoid BRITTANI/ARB due to impaired kidney function. 6. HYPERTENSION: He was started on hydralazine 25mg po TID and his coreg was increased to 6.25mg po bid. 7. DIABETES MELLITUS: Uncontrolled. He has been started on accuchecks. 8. TOBACCO ABUSE: Chronic. Greater than 5 minutes was spent discussing the benefits of tobacco cessation. 9. HISTORY OF NONCOMPLIANCE: Chronic. He has taken himself off of medications on numerous occasions but reports he has been recently compliant with medical therapy. 10. ELEVATED ALP: Hepatitis panel negative. Will defer to hospital medicine for further evaluation. 11. HYPOCALCEMIA: He is on calcium carbonate 1200mg po BID. 12. ANEMIA: H&H dropped to 7.2 & 22.2 yesterday and he received blood transfusion. Suspect this is related to his kidney disease as he has had no obvious signs of bleeding. Exam (Progress Note) - Constitutional Vitals: Period Temp Pulse Resp BP Sys/Ford Pulse Ox Last 24 Hr 98.4 F-100.2 F 73-87 16-20 135-189/75-101 95-97 Exam: General appearance: Pleasant and cooperative. no acute distress. Head exam: Present: normal inspection, normocephalic, atraumatic. Absent: hematoma, laceration Eye exam: Present: EOMI. Absent: conjunctival injection, nystagmus, periorbital swelling, scleral icterus, laceration to eyelids, jaundice Pupils: Present: PERRL. Absent: constricted, dilated, fixed, irregular, unequal ENT exam: Present: normal exam, normal external ear exam, mucous membranes moist. Neck exam: Present: normal inspection, midline trachea. Absent: masses, lymphadenopathy, tenderness, thyromegaly, carotid bruit Respiratory exam: Present: clear to auscultation bilaterally. Absent: accessory muscle use, chest wall tenderness, rales, rhonchi, wheezing. Cardiovascular exam: Present: regular rate and rhythm. Absent: gallop, JVD, rubs, murmur GI/Abdominal exam: Present: normal bowel sounds, soft. Absent: distended, firm , hernia, mass, tenderness. Extremities exam: Present: Normal Gait, No Clubbing, No Cyanosis, Upper Extr. Pulses 2+, Faint PT pulses palpable bilaterally, 1+ BLE edema. Pain in BLE ( tops and bottoms of feet). Capillary refill less than 3 seconds. Musculoskeletal: Present: No Fluid Collection, Normal Range of Motion Back exam: Present: normal inspection. Absent: muscle spasm, vertebral tenderness Neurological exam: Present: awake, alert, oriented X3, Moves all extremities well without hemiparesis or paralysis. Grossly intact without resting or essential tremor Psychiatric exam: Present: quiet, somewhat of a flat affect Skin exam: Present: normal color, warm, dry, intact. Absent: cyanosis, diaphoretic, rash, urticaria Result/EKG - Labs CBC & BMP: 12/09/16 02:27 12/09/16 02:27 Lab Results: I have reviewed the past 24 hour labs Labs: Laboratory Results - last 24 hr 12/08/16 12/08/16 12/08/16 03:30 17:38 17:41 WBC RBC Hgb Hct MCV MCH MCHC RDW Plt Count MPV Neut % (Auto) Lymph % (Auto) Elliott % (Auto) Eos % (Auto) Baso % (Auto) Neut # (Auto) Lymph # (Auto) Elliott # (Auto) Eos # (Auto) Baso # (Auto) Immature Gran % Nucleated RBC % Immature Gran # Nucleated RBCs # Immature Plt Fraction Sodium Potassium Chloride Carbon Dioxide Anion Gap BUN Creatinine GFR Calculation BUN/Creatinine Ratio Glucose POC Glucose Calculated Osmolality Calcium Total Creatine Kinase 125 D CK-MB (CK-2) 3.1 Troponin I 1.380 H Urine Color Yellow Urine Appearance Slightly hazy Urine pH 5.0 Ur Specific [place] 1.010 Urine Protein >=500 Urine Glucose (UA) 50 Urine Ketones Negative Urine Blood Small Urine Nitrate Negative Urine Bilirubin Negative Urine Urobilinogen < 2.0 H Urine Leukocytes Negative Urine RBC 34 Urine WBC 3 Ur Squamous Epith Cells Occasional Urine Bacteria Occasional Ur Culture Indicated? Not indicated Blood Type O POSITIVE Antibody Screen Negative Crossmatch See Detail 12/08/16 12/08/16 12/09/16 18:48 22:25 00:31 WBC RBC Hgb 8.6 L Hct 26.2 L MCV MCH MCHC RDW Plt Count MPV Neut % (Auto) Lymph % (Auto) Elliott % (Auto) Eos % (Auto) Baso % (Auto) Neut # (Auto) Lymph # (Auto) Elliott # (Auto) Eos # (Auto) Baso # (Auto) Immature Gran % Nucleated RBC % Immature Gran # Nucleated RBCs # Immature Plt Fraction Sodium Potassium Chloride Carbon Dioxide Anion Gap BUN Creatinine GFR Calculation BUN/Creatinine Ratio Glucose POC Glucose 223 H 201 H Calculated Osmolality Calcium Total Creatine Kinase CK-MB (CK-2) Troponin I Urine Color Urine Appearance Urine pH Ur Specific [place] Urine Protein Urine Glucose (UA) Urine Ketones Urine Blood Urine Nitrate Urine Bilirubin Urine Urobilinogen Urine Leukocytes Urine RBC Urine WBC Ur Squamous Epith Cells Urine Bacteria Ur Culture Indicated? Blood Type Antibody Screen Crossmatch 12/09/16 12/09/16 12/09/16 02:27 02:27 04:31 WBC 10.4 RBC 2.81 L Hgb 8.3 L Hct 25.2 L MCV 89.7 MCH 30 MCHC 32.9 RDW 13.7 Plt Count 175 MPV 9.9 Neut % (Auto) 76.5 H Lymph % (Auto) 12.2 L Elliott % (Auto) 9.7 Eos % (Auto) 0.9 Baso % (Auto) 0.3 Neut # (Auto) 7.9 H Lymph # (Auto) 1.3 L Elliott # (Auto) 1.0 H Eos # (Auto) 0.1 Baso # (Auto) 0.0 Immature Gran % 0.4 Nucleated RBC % 0.0 Immature Gran # 0.04 Nucleated RBCs # 0.00 Immature Plt Fraction 0.0 Sodium 140 Potassium 5.9 H Chloride 111 H Carbon Dioxide 23 Anion Gap 11.9 BUN 93 H Creatinine 5.50 H GFR Calculation 12 BUN/Creatinine Ratio 16.00 Glucose 152 H POC Glucose 166 H Calculated Osmolality 310.4 H Calcium 6.8 L Total Creatine Kinase CK-MB (CK-2) Troponin I Urine Color Urine Appearance Urine pH Ur Specific [place] Urine Protein Urine Glucose (UA) Urine Ketones Urine Blood Urine Nitrate Urine Bilirubin Urine Urobilinogen Urine Leukocytes Urine RBC Urine WBC Ur Squamous Epith Cells Urine Bacteria Ur Culture Indicated? Blood Type Antibody Screen Crossmatch 12/09/16 12/09/16 12/09/16 07:53 11:49 15:32 WBC RBC Hgb Hct MCV MCH MCHC RDW Plt Count MPV Neut % (Auto) Lymph % (Auto) Elliott % (Auto) Eos % (Auto) Baso % (Auto) Neut # (Auto) Lymph # (Auto) Elliott # (Auto) Eos # (Auto) Baso # (Auto) Immature Gran % Nucleated RBC % Immature Gran # Nucleated RBCs # Immature Plt Fraction Sodium Potassium Chloride Carbon Dioxide Anion Gap BUN Creatinine GFR Calculation BUN/Creatinine Ratio Glucose POC Glucose 155 H 227 H 264 H Calculated Osmolality Calcium Total Creatine Kinase CK-MB (CK-2) Troponin I Urine Color Urine Appearance Urine pH Ur Specific [place] Urine Protein Urine Glucose (UA) Urine Ketones Urine Blood Urine Nitrate Urine Bilirubin Urine Urobilinogen Urine Leukocytes Urine RBC Urine WBC Ur Squamous Epith Cells Urine Bacteria Ur Culture Indicated? Blood Type Antibody Screen Crossmatch - EKG EKG results: interpreted by me, sinus rhythm Specialty Discharge - Follow Up or Referrals Follow up with: Pieter Bender MD [Physician] - 01/05/17 9:20 am (Follow up with Dr. Bender in 2-4 weeks. )
[2016-12-09] MEDS ORDERED: SIMVASTATIN 10 MG TABLET PO SCH (21:00)
[2016-12-10] MEDS: DEXTROSE 5% 1,000 ML IV SCH (00:40)
[2016-12-10] MEDS: ASPIRIN EC 81 MG TABLET PO SCH (08:52)
[2016-12-10] MEDS: CALCIUM (CARBONATE) 600 MG TABLET PO SCH (08:52)
[2016-12-10] MEDS: CARVEDILOL 6.25 MG TABLET PO SCH (08:52)
[2016-12-10] MEDS: GABAPENTIN 300 MG CAPSULE PO SCH (08:52)
[2016-12-10] MEDS: hydrALAZINE 25 MG TABLET PO SCH (08:53)
[2016-12-10] MEDS: CLOPIDOGREL 75 MG TABLET PO SCH (08:53)
--- NOTE | 2016-12-10 11:38 | Discharge Summary ---
Hospital Course - Hospital Course Hospital Course: Mr. Vaz has chronic kidney disease stage V with glomerular filtration rate of about 10. The patient was admitted to the hospital with profound hypoglycemia and altered mental status. We held antidiabetic medications and supportive glucose with dextrose infusion. The patient has regained stable condition. The patient's antihypertensive regimen has been adjusted and his diuretic medicine increased to 120 mg once daily. The patient was noted to have minor elevation of troponin at the time of admission to the hospital. Cardiology was consulted. Patient with chronic kidney disease, so a cardiac cath was not performed. The decision was made to treat him medically for NSTEMI, with aspirin, plavix, coreg , simvastatin and hydralazine. Nephrology was consulted and followed throughout hospitalization. The patient has now reached maximal benefit of inpatient stay and will be discharged to home. - Time spent with patient Time with patient DS: Greater than 30 minutes (35) Diagnosis - Discharge Diagnosis (1) CKD (chronic kidney disease) Status: Chronic (2) Hypoglycemia Status: Resolved (3) Non-ST elevation [place] (NSTEMI) Status: Resolved (4) Bilateral foot pain Status: Chronic (5) Anemia Status: Chronic Specialty Discharge - Follow Up or Referrals Follow up with: Pieter Bender MD [Physician] - 01/05/17 9:20 am (Follow up with Dr. Bender in 2-4 weeks. ) Discharge Plan - Discharge Data Disposition: Disch To Home/Self Care Condition at Discharge: Stable Discharge Diet: advance to your usual diet Activity: increase activity as tolerated Hygiene: no restrictions Weight Bearing at Discharge: weight bear as tolerated Contact your physician if you experience:: fever over 101, Shortness of breath - Discharge Medications New Furosemide Tab [Lasix Tab] 160 mg PO DAILY #90 tablet Carvedilol [Coreg] 3.125 mg PO BID tablet Carvedilol [Coreg] 3.125 mg PO BID #100 tablet Continue Aspirin [Ecotrin] 81 mg PO DAILY Multivitamin (Centrum) [Centrum Tab] 1 tablet PO DAILY Calcium (Carbonate) [Caltrate 600] 1,200 mg PO BID amLODIPine [Norvasc] 5 mg PO DAILY Simvastatin 10 mg PO DAILY Gabapentin Cap/Tab [Neurontin Cap/Tab] 100 mg PO TID Discontinued hydrALAZINE TAB [Apresoline Tab] 50 mg PO TID Furosemide Tab [Lasix Tab] 40 mg PO TID Ibuprofen Tab [Motrin Tab] 600 mg PO Q6H PRN PRN Reason: Pain Saxagliptin HCl [Onglyza] 2.5 mg PO DAILY glipiZIDE [Glipizide Xl] 10 mg PO DAILY - Follow Up or Referral Follow Up: Pieter Bender MD [Physician] - 01/05/17 9:20 am (Follow up with Dr. Bender in 2-4 weeks. ) - Forms/Instructions Instructions: Myocardial Infarction (GEN), Coronary Artery Disease (GEN), Left Heart Catheterization (DC), How to Stop Smoking (GEN), Heart Healthy Diet (GEN) , Cigarette Smoking and Your Health (GEN) Exam - Constitutional Vitals: Period Temp Pulse Resp BP Sys/Ford Pulse Ox Last 24 Hr 98.4 F-101.4 F 73-85 16-20 153-181/76-92 95-96 General appearance: normal weight - Head Head exam: Present: normocephalic, atraumatic - Eye Eye exam: Present: EOMI Pupils: Present: DOT - ENT ENT exam: Present: normal exam - Neck Neck exam: Present: normal inspection - Respiratory Respiratory exam: Present: clear to auscultation bilaterally. Absent: rhonchi, wheezes - Cardiovascular Cardiovascular exam: Present: regular rate and rhythm - GI/Abdominal GI/Abdominal exam: Present: normal bowel sounds, soft. Absent: tenderness, rebound - Extremities Exam Extremities exam: Present: normal inspection - Back Exam Back exam: Present: normal inspection - Neurological Exam Neurological exam: Present: alert, oriented X3 - Psychiatric Psychiatric exam: Present: normal affect, normal mood - Skin Skin exam: Present: warm, intact Discharge Results Labs on day of discharge: Labs from last 24 hours 12/10/16 12/10/16 12/10/16 07:53 04:16 00:57 POC Glucose 170 H 175 H 193 H 12/09/16 12/09/16 12/09/16 18:57 15:32 11:49 POC Glucose 226 H 264 H 227 H DS: Provider Date of admission: 12/03/16 12:56 Primary care physician: Ceasar Herzog MD Attending physician on admission: Clark Oquendo MD Consults: 12/03/16 13:36 Consult to Physician [CONS] Routine Comment: Consulting Provider: Alvina Tate When should Consulting Provider be notified: Now Consult to Specialist Group: Cardiology Person Notified: Jennifer Date Notified: 12/03/16 Time Notified: 14:25 Consult Notification Comment: Elevated Troponin at [facility] and [facility] Patient known to Dr Bender HX: CABG (2 vessel) 12/03/16 13:38 Consult to Case Mgmt/Social Srvs [CONS] Routine Reason for Case Mgmt/Social Srvs: Discharge Planning 12/03/16 14:08 Consult to [facility], Educator [CONS] Routine Reason for Stock Checkerer: Diabetes Education 12/03/16 14:23 Consult to Physician [CONS] Routine Comment: patient is known to Dr Alexander and Dr Galdamez ([facility]) Consulting Provider: Miguelangel Garrett When should Consulting Provider be notified: Now Consult to Specialist Group: Nephrology Person Notified: Martha Date Notified: 12/03/16 Time Notified: 14:45 Consult Notification Comment: 12/04/16 06:22 Consult to Cardiac Rehabilitation [CONS] Routine Reason for Cardiac Rehabilitation: Risk Factor Modification Discharging clinician: Kevin Villalpando MD
[2016-12-10 12:19] VITALS: BP 171/90
== END 2016-12-10 14:40 | disposition home or self-care (01) | DRG 281 ==
LOC: EDBD → EDUNIT# → N.ED 10:47 → N.EDINP 12:56 → SUATTDRO 12:56 → N.TELES 14:07
PROVIDERS: ADMIT Internal Medicine; ATTEND Internal Medicine

== ENCOUNTER 2018-07-28 12:30 | Inpatient (IN) ==
[2018-07-28] MEDS ORDERED: DEXTROSE 50% 25 GM/50 ML SYRINGE IV PRN (15:02)
[2018-07-28] MEDS ORDERED: ONDANSETRON 4 MG/2 ML VIAL IV PRN (15:02)
[2018-07-28] MEDS ORDERED: ACETAMINOPHEN 325 MG TABLET PO PRN (15:02)
[2018-07-28] MEDS ORDERED: GLUCAGON 1 MG VIAL IM PRN (15:02)
[2018-07-28] MEDS ORDERED: LACTULOSE 20 GM/30 ML UDCUP PO PRN (15:02)
[2018-07-28 15:26] LABS: Basophils # 0.1 10*3/uL (0.0-0.2); Basophils % 0.9 % (0.0-0.8); Eosinophils # 0.1 10*3/uL (0.0-0.87); Eosinophils % 2.1 % (0.00-10.9); Hematocrit 25.9 VOL% (42.0-52.0); Hemoglobin 8.1 GM/DL (14.0-18.0); Immature Granulocytes % 0.5 %; Immature Granulocytes Absolute 0.03 #; Lymphocytes # 0.6 10*3/uL (1.4-4.0); Lymphocytes % 9.7 % (21.2-54.2); Mean Corpuscular HGB Conc 31.3 GM/DL (32-36); Mean Corpuscular Volume 91.8 FL (87-102); Mean Platelet Volume 9.3 FL (9.6-12.0); Monocytes % 6.3 % (1.7-12.7); Neutrophils % 80.5 % (38.7-73.9); Platelet Count 156 T/CUMM (130-400); Red Blood Count 2.82 MC/CUMM (3.8-5.5); Red Cell Distribution Width 15.8 % (9.3-17.3); White Blood Count 5.9 T/CUMM (4-12)
[2018-07-28] MEDS ORDERED: ceFAZolin 1,000 MG in SYRINGE 1 EACH IV ONE (15:35)
[2018-07-28] MEDS: CALCIUM (CARBONATE) 600 MG TABLET PO SCH ×2 (15:37→20:18)
[2018-07-28] MEDS: CALCIUM CARBONATE CHEW 500 MG TABLET PO SCH (15:38)
[2018-07-28] MEDS: PANTOPRAZOLE 40 MG TABLET PO SCH (15:38)
[2018-07-28 15:45] LABS: INR 1.1; PT Patient Result 12.1 SECS; Partial Thromboplastin Time 33.1 SECS (0-40)
[2018-07-28 15:59] LABS: Parathyroid Hormone Intact 435.6 PG/ML (18.4-80.1)
[2018-07-28] MEDS ORDERED: BUPIVACAINE 0.5% 50 ML VIAL ONE (16:12)
[2018-07-28] MEDS ORDERED: HEPARIN 5,000 UNIT/1 ML VIAL ONE (16:12)
[2018-07-28] MEDS ORDERED: LIDOCAINE 1%/EPI INJ 20 ML VIAL ONE (16:13)
[2018-07-28 16:48] LABS: Hepatitis B Core IgM Quant < 0.05 Index; Hepatitis B Surface Ag Quant < 0.10 Index; Hepatitis B Surface Ag Result Negative (Negative); Hepatitis C Virus Ab Quant 0.08 Index; Hepatitis C Virus Ab Result Negative (Negative)
[2018-07-28] MEDS ORDERED: MIDAZOLAM 2 MG/2 ML VIAL ONE (17:06)
[2018-07-28] MEDS ORDERED: KETAMINE 500 MG/10 ML VIAL ONE (17:07)
[2018-07-28] MEDS: CARVEDILOL 12.5 MG TABLET PO SCH (20:18)
[2018-07-28] MEDS: ENOXAPARIN 30 MG/0.3 ML SYRINGE SUBCUT SCH (20:18)
[2018-07-29 00:15] LABS: Osmolality,Calculated 332.3 MOS/KG (273-304)
[2018-07-29 00:16] LABS: Calcium 5.1 MG/DL (8.5-10.1)
[2018-07-29 05:59] LABS: Basophils # 0.1 10*3/uL (0.0-0.2); Basophils % 1.2 % (0.0-0.8); Eosinophils # 0.2 10*3/uL (0.0-0.87); Eosinophils % 2.6 % (0.00-10.9); Hematocrit 22.5 VOL% (42.0-52.0); Hemoglobin 7.3 GM/DL (14.0-18.0); Immature Granulocytes % 0.5 %; Immature Granulocytes Absolute 0.03 #; Lymphocytes # 0.6 10*3/uL (1.4-4.0); Lymphocytes % 9.7 % (21.2-54.2); Mean Corpuscular HGB Conc 32.4 GM/DL (32-36); Mean Corpuscular Volume 90.4 FL (87-102); Mean Platelet Volume 10.1 FL (9.6-12.0); Monocytes % 6.5 % (1.7-12.7); Neutrophils % 79.5 % (38.7-73.9); Platelet Count 144 T/CUMM (130-400); Red Blood Count 2.49 MC/CUMM (3.8-5.5); Red Cell Distribution Width 15.8 % (9.3-17.3); White Blood Count 5.9 T/CUMM (4-12)
[2018-07-29 06:32] LABS: Calcium 5.3 MG/DL (8.5-10.1); Osmolality,Calculated 334.1 MOS/KG (273-304)
[2018-07-29 06:33] LABS: Risk Ratio 2.33
[2018-07-29] MEDS ORDERED: SODIUM CHLORIDE 0.9% 1,000 ML IV PRN (07:23)
[2018-07-29] MEDS ORDERED: CALCIUM GLUCONATE 2,000 MG in SODIUM CHLORIDE 0.9% 100 ML IV PRN (07:31)
[2018-07-29] MEDS: CALCIUM CARBONATE CHEW 500 MG TABLET PO SCH ×4 (07:42→16:04)
[2018-07-29] MEDS: CALCIUM (CARBONATE) 600 MG TABLET PO SCH ×2 (08:17→20:47)
[2018-07-29] MEDS: CARVEDILOL 12.5 MG TABLET PO SCH ×2 (08:18→20:47)
[2018-07-29] MEDS: PANTOPRAZOLE 40 MG TABLET PO SCH (08:18)
[2018-07-29] MEDS: amLODIPine 5 MG TABLET PO SCH (08:18)
[2018-07-29] MEDS ORDERED: HEPARIN 10,000 UNIT/10 ML VIAL IV SCH (12:00)
[2018-07-29] MEDS: ENOXAPARIN 30 MG/0.3 ML SYRINGE SUBCUT SCH (20:47)
[2018-07-30 06:16] LABS: Calcium 5.9 MG/DL (8.5-10.1); Osmolality,Calculated 310.4 MOS/KG (273-304)
[2018-07-30 06:18] LABS: Albumin 3.2 G/DL (3.4-5.0)
[2018-07-30] MEDS: CALCIUM CARBONATE CHEW 500 MG TABLET PO SCH ×3 (11:26→16:47)
[2018-07-30] MEDS: CALCIUM (CARBONATE) 600 MG TABLET PO SCH ×2 (11:27→20:08)
[2018-07-30] MEDS: PANTOPRAZOLE 40 MG TABLET PO SCH (11:27)
[2018-07-30] MEDS: CARVEDILOL 12.5 MG TABLET PO SCH ×2 (11:27→20:08)
[2018-07-30] MEDS: amLODIPine 5 MG TABLET PO SCH (11:27)
[2018-07-30] MEDS: ENOXAPARIN 30 MG/0.3 ML SYRINGE SUBCUT SCH (20:08)
[2018-07-31 05:58] LABS: Calcium 6.4 MG/DL (8.5-10.1)
[2018-07-31] MEDS: amLODIPine 5 MG TABLET PO SCH (08:22)
[2018-07-31] MEDS: PANTOPRAZOLE 40 MG TABLET PO SCH (08:22)
[2018-07-31] MEDS: CALCIUM CARBONATE CHEW 500 MG TABLET PO SCH ×3 (08:22→16:35)
[2018-07-31] MEDS: CALCIUM (CARBONATE) 600 MG TABLET PO SCH ×2 (08:22→20:23)
[2018-07-31] MEDS: CARVEDILOL 12.5 MG TABLET PO SCH ×2 (08:22→20:23)
[2018-07-31 08:57] LABS: Basophils # 0.1 10*3/uL (0.0-0.2); Basophils % 1.3 % (0.0-0.8); Eosinophils # 0.2 10*3/uL (0.0-0.87); Eosinophils % 3.1 % (0.00-10.9); Hematocrit 29.3 VOL% (42.0-52.0); Hemoglobin 10.1 GM/DL (14.0-18.0); Immature Granulocytes % 0.6 %; Immature Granulocytes Absolute 0.04 #; Lymphocytes # 1.2 10*3/uL (1.4-4.0); Lymphocytes % 18.6 % (21.2-54.2); Mean Corpuscular HGB Conc 34.5 GM/DL (32-36); Mean Corpuscular Volume 86.2 FL (87-102); Mean Platelet Volume 11.3 FL (9.6-12.0); Monocytes % 10.5 % (1.7-12.7); Neutrophils % 65.9 % (38.7-73.9); Red Cell Distribution Width 14.9 % (9.3-17.3); White Blood Count 6.4 T/CUMM (4-12)
[2018-07-31 09:00] LABS: Platelet Count 115 T/CUMM (130-400)
[2018-07-31] MEDS: CALCITRIOL 0.5 MCG CAPSULE PO SCH (10:38)
[2018-07-31] MEDS: ENOXAPARIN 30 MG/0.3 ML SYRINGE SUBCUT SCH (20:22)
[2018-08-01 05:52] LABS: Calcium 6.2 MG/DL (8.5-10.1); Osmolality,Calculated 291.7 MOS/KG (273-304)
[2018-08-01] MEDS: CALCIUM (CARBONATE) 600 MG TABLET PO SCH ×2 (07:51→08:27)
[2018-08-01] MEDS: CARVEDILOL 12.5 MG TABLET PO SCH ×2 (07:51→08:28)
[2018-08-01] MEDS: CALCIUM CARBONATE CHEW 500 MG TABLET PO SCH ×2 (07:52→12:00)
[2018-08-01] MEDS: amLODIPine 5 MG TABLET PO SCH ×2 (07:52→08:28)
[2018-08-01] MEDS: PANTOPRAZOLE 40 MG TABLET PO SCH ×2 (07:55→08:28)
[2018-08-01] MEDS: CALCITRIOL 0.5 MCG CAPSULE PO SCH (08:00)
[2018-08-01] MEDS ORDERED: CALCIUM GLUCONATE 2,000 MG in SODIUM CHLORIDE 0.9% 100 ML IV PRN (08:11)
[2018-08-01 12:02] VITALS: BP 145/86
== END 2018-08-01 16:52 | disposition home or self-care (01) | DRG 470 ==
LOC: N.CC 14:29 → SUATTDRO 14:29 → N.5E 07-29 13:43
PROVIDERS: ADMIT Internal Medicine; ATTEND Internal Medicine